=== PATIENT | male | born 1985 | race Caucasian/White ===

== ENCOUNTER → 2024-10-11 11:00 | Outpatient (REF) | payer SELFPAY ==
[2024-10-11 16:23] LABS: Color, Urine Yellow (Yellow); Glucose, Dipstick Normal (Normal); Ketone-Dipstick Negative (Negative); Leukocyte Esterase-Dipstick Negative /ul (Negative); Nitrite-Dipstick Negative (Negative); Occult Blood-Urine Negative /ul (Negative); Protein-Dipstick 15 mg/dl (Negative); Urine Bilirubin Dipstick Negative (Negative); Urine Clarity Cloudy (Clear); Urine Urobilinogen 1 mg/dl (Normal); Urine pH 6.5 (5.0 - 8.0)
--- OUTSIDE RECORDS SUMMARY | 2024-10-11 22:03 | XMS RPT_ITS | CCD ---
Author Organization [facility] Care Team Providers Care [place] Setter Name Role Phone OTONIEL GUAN III Attending Unavail able OTONIEL GUAN III Attending Unavailable ROSARIO ROB, DR OTONIEL Wilkins Primary Care Physician Otoniel Beck MD Unavailable Stanton HERNÁNDEZ, Sherry Amaro Unavailable [phone] Elvin SALES OPERATIONS ASSOCIATE, Janki Aileen Unavailable Unavailable Lupe Dao MD Unavailable Buddy SALES OPERATIONS ASSOCIATE, Jocelyn Unavailable Unavailable Rashaad HERNÁNDEZ, Kelli Amaro Unavailable [phone] Tash SALES OPERATIONS ASSOCIATE, Yesenia Sánchez Unavailable Unavailab angélica Warner SALES OPERATIONS ASSOCIATE, Barby Unavailable Unavailabl e Unavailable Unavailable BRITTNEY ROB, DR MADRIGAL Attending Unavailable ROSARIO ROB, DR OTONIEL Wilkins Primary Care Ekaterina KOLB MD, SUSANA Admitting Unavailable SARAH ROB, DR PARRA Consulting Unavailable DANGELO ROB, ROXIE Consulting Unavailable RICHY ROB, DR NAZARIO Consulting Unavailable MARIA INES ROB, CÉSAR Consulting Unavailable MAX ROB, CANDACE Consulting Unavailfranky CORONEL MD, VIRGINIE Consulting Unavailable MAX VALLEJO Primary Care Unavailable MAX VALLEJO Admitting Unavailable MAX VALLEJO Attending Unavailable OTONIEL BECK Referring Unavailable OTONIEL BECK Consulting Unavailable REINIER SENIOR MD Attending Unavailable REINIER SENIOR MD Primary Care Unavailable REINIER SENIOR MD Admitting Unavailable PROVIDER, UNKNOWN Consulting Unavailable PROVIDER, UNKNOWN Consulting Unavailable PROVIDER, UNKNOWN Consulting Unavailable Medications Current Medications Medication Drug Class(es) Dates Sig (Normalized) Sig (Original) dexamethasone 4 mg oral tablet (1 source) Corticosteroid Start: 07-20-2023 End: 07-25-2023 dexAMETHasone 4 mg oral tablet Dose : 4 mg = 1 tab(s), Oral, QID, X 5 day(s), # 20 tab(s), 0 Refill(s), 07/25/23 1:28:00 PM EDT, Pharmacy: [facility], 182.6, cm, 07/17/23 23:19:00 EST, Height, kg, 07/17/23 23:19:00 EST, Dosing Weight Start Date: 07/20/23 Stop Date: 07/25/23 Status: Ordered levETIRAcetam 500 mg oral tablet (1 source) Start: 07-20-2023 Keppra 500 mg oral tablet Dose : 500 mg = 1 tab(s), Oral, BID, # 60 tab(s), 0 Refill(s), Pharmacy: [facility], 182.6, cm, 07/17/23 23:19:00 EST, Height, kg, 07/17/23 23:19:00 EST, Dosing Weight Start Date: 07/20/23 Status: Ordered pantoprazole 40 mg delayed release oral tablet (1 source) Proton Pump Inhibitor Start: 07-20-2023 Protonix 40 mg oral enteric coated tablet Dose : 40 mg = 1 tab(s), Oral, qDayAC, # 30 tab(s), 0 Refill(s), Pharmacy: [facility], 182.6, cm, 07/17/23 23:19:00 EST, Height, kg, 07/17/23 23:19:00 EST, Dosing Weight Start Date: 07/20/23 Status: Ordered Completed/Discontinued Medications Medication Drug Class(es) Dates Sig (Normalized) Sig (Original) azithromycin 500 mg oral tablet (8 sources) Macrolide Antimicrobial Start: 08-04-2017 End: 08-07-2017 take 1 tablet by mouth once daily Azithromycin 500 MG Oral Tablet ; 1 (one) Tablet daily for 3 days Quantity: 3 {Tablet} Refills: 0 Ordered: 04-Aug-2017 MD Lupe Dao Start: 04-Aug-2017 End: 07-Aug-2017 Status: Inactive nortriptyline 25 mg oral capsule (8 sources) Tricyclic Antidepressant Start: 07-14-2013 End: 10-28-2020 take 1 capsule by mouth once daily at bedtime Nortriptyline HCl 25 MG Oral Capsule ; 1 (one) Capsule Capsule daily at bedtime for 0 days Quantity: 30 {Capsule} Refills: 2 Ordered: 28-Oct-2020 [place] Goodwin Jocelyn Start: 14-Jul-2013 End: 28-Oct-2020 Status: Inactive Problems Active Problems Problem Classification Problem Date Documented Da te Episodic/Chronic Abdominal pain (20 sources) Abdominal pain; Translations: [Unspecified abdominal pain] 10-28-2020 Episodic Cancer of brain and nervous system (15 sources) Malignant neoplasm of cerebrum; Translations: [Malignant neoplasm of cerebrum, except lobes and ventricles] Chronic Cancer of bronchus; lung (2 sources) Malignant neoplasm of unspecified part of right bronchus or lung; Translations: [Primary malignant neoplasm of right lung] Chronic Epilepsy; convulsions (1 source) Seizure; Translations: [Unspecified convulsions] Episodic Fluid and electrolyte disorders (1 source) Acidosis; Translations: [Acidosis, unspecified] Episodic Malaise and fatigue (16 sources) Lack of energy; Translations: [Other fatigue] 10-28-2020 Episodic Other gastrointestinal disorders (20 sources) Constipation; Translations: [Constipation, unspecified] 10-28-2020 Episodic Other lower respiratory disease (1 source) Abnormal findings on diagnostic imaging of lung; Translations: [Other nonspecific abnormal finding of lung field] Onset: 07-20-2023 Episodic Other lower respiratory disease (1 source) Multiple nodules of lung 07-20-2023 Episodic Other nervous system disorders (1 source) Disorder of brain; Translations: [Encephalopathy, unspecified] Chronic Other nervous system disorders (16 sources) Paresthesia; Translations: [Paresthesia of skin] 10-28-2020 Episodic Other non-epithelial cancer of skin (1 source) History of malignant neoplasm of skin; Translations: [Personal history of other malignant neoplasm of skin] Episodic Other upper respiratory infections (20 sources) Acute pharyngitis; Translations: [Acute pharyngitis, unspecified] 08-04-2017 Episodic Secondary malignancies (2 sources) Secondary malignant neoplasm of brain; Translations: [Secondary malignant neoplasm of brain] Onset: 07-20-2023 Chronic Secondary malignancies (14 sources) Secondary malignant neoplastic disease; Translations: [Secondary malignant neoplasm of unspecified site] 07-22-2023 Chronic Past or Other Problems Problem Classification Problem Date Documented Date Episodic/Chronic Headache; including migraine (8 sources) Headache; including migraine 08-04-2017 Unclassified (1 source) QUAD STRENGTHENING Onset: 01-25-2023 Unclassified (8 sources) Cold Symptoms - Symptoms include sore throat, general malaise (denies body aches, reports mild fatigue) and headache, but do not include sneezing, nasal congestion, runny nose, ear pain, scratchy throat, hoarseness, dry cough, productive cough, wheezing, fever or chills. The onset was gradual 4 day(s) ago. The symptoms occur constantly. The patient describes this as moderate in severity and worsening. Current treatment includes cough suppressants (that numb his throat), acetaminophen (last dose was at 3 am, this has been helping his headaches) and garling peroxide and salt water. Risk factors do not include smoking. The patient has not been exposed to an individual with a cough, an individual with an upper respiratory infection, an individual with similar symptoms, an individual with strep or secondhand smoke. Medical history includes tonsillectomy, but patient denies history of seasonal allergies, recurrent sinusitis, recurrent strep pharyngitis, asthma or recurrent ear infections. Note for Upper respiratory infection: pt said he gets sore throats often but within 2 days it typically goes awayPatient has not been vaccinated for COVID. 10-28-2020 Unclassified (8 sources) Headache - The onset of the headache has been acute and has been occurring in an intermittent pattern for 1 month. The course has been recurrent. The headache is characterized as a pressure sensation. The headache is experienced any time of the day (no diurnal variation). The headache is described as being located in the frontal area and the temporal area. There has been no associated ear pain, fever, head trauma or sore throat. Note for Headache: patient last week had a head cold and states that he does still have a little congestion but not real bad. States it can feel like spasms sometimes. He was in yesterday for bowel problems/constipatio n which was seen month prior and has been using mirilax and then came in yesterday was sent for xray which stated that he had no blockage was told to do a enima a nd stated that he did and all in return was liquid. 06-23-2013 Unclassified (8 sources) Abdominal pain and Constipation - Pt was here 06/07/13 for abdominal pain and constipation. Pain is across the lower abdomen. He was instructed to increase fiber in his diet and take Miralax daily. Pt has done both of these things and still having the pain and constipation. Has been having daily BMs since starting on the miralax but say they are only a small amount and are the size of pencils - long and thin. Last good BM was on Wednesday and it was diarrhea. He had had an ex-lax tea to drink that day. Has had the small BMs since then. Some nausea but no vomiting. Continues to feel bloated intermittently. Feels like there is just a big chunk of stool that he can't get out. He feels like he has to have a BM but only air will come out. Does have relief from his symptoms after BM but just doesn't feel back to normal. 06-19-2013 Unclassified (8 sources) Constipation - The onset of the constipation has been gradual and has been occurring in a persistent pattern for 4 weeks. The course has been constant. The frequency of bowel movements has been 3 per week. The symptoms have been associated with abdominal pain (bloating) and nausea (will feel hungry but when he starts to eat feels sick to his stomach; has vomited once). Note for Constipation: Some improvement in bloating sensation after has a BM. Some straining with BMs. No blood with BMs.Pt also has pain in his head at times and shooting pain in his left leg. Says that doesn't have a pain in the leg, it is more of a tingling sensation down the entire leg. Only happens when he sits or lies down; discomfort is constant when in these positions. No history of injury. No low back pain. This has been for about a month. For weeks now has had spasms all over body and loss of energy. No headaches or really pain in his head as mentioned earlier. Has this feeling every couple of days. Had cold symptoms a few days ago but those have resolved. No ill contacts.Pt is here to establish care - previously a patient at [facility]. 06-08-2013 Results Test Name Value Interpretation Reference Range [facility] [place] [address] Patient: OTTONIEL DASILVA Phone#: : 1985 Age: 37 Gender: M Pt. Type: ER Account: [id number] Location: 052 Ordering: DR. REINIER SENIOR Exam Date: 10/01/2023/2:30 Family Phys: OTONIEL BECK Charge Code: [id number] Physician: [place] Order #: [id number] Dose#: PROCEDURE: X-RAY CHEST 2 VIEWS COMPARISON: [facility], XR, CHEST 1 VIEW, 07/17/2023, 11:32. INDICATIONS: Shortness of breath. FINDINGS: LUNGS: Opacification in the left lower thorax is present consistent with effusion. Opacification left lower lobe is present consistent with infiltrate and/or loss of volume.. VASCULATURE: Normal. Unremarkable pulmonary vasculature. CARDIAC: Normal. No cardiac silhouette abnormality or cardiomegaly. MEDIASTINUM: Normal. No visible mass or adenopathy. PLEURA: Left-sided pleural effusion is present and larger than on prior exam. Underlying infiltrate cannot be excluded. BONES: Normal. No fracture or visible bony lesion. OTHER: Negative. CONCLUSION: 1. Left lower lobe atelectasis and/or infiltrate. 2. Left pleural effusion. Dictated by: Jodi Son MD on 10/01/2023 at 9:12 Approved by: Jodi Son MD on 10/01/2023 at 9:24 Normal [facility] CT BRAIN W/O CONTRASTon 09-08 CT BRAIN W/O CONTRAST [place] [address] Patient: OTTONIEL DASILVA Phone#: : 1985 Age: 37 Gender: M Pt. Type: ER Account: [id number] Location: 052 Ordering: DR. REINIER SENIOR Exam Date: 10/01/2023/1:55 Family Phys: OTONIEL BECK Charge Code: [id number] Physician: [place] Order #: [id number] Dose#: [id number] PROCEDURE: CT BRAIN WITHOUT CONTRAST COMPARISON: [facility], CT, BRAIN W/O CON, 07/17/2023, 11:18. INDICATIONS: Headache. TECHNIQUE: CT images were obtained without contrast material. All CT scans at this facility use dose modulation, iterative reconstruction, and/or weight based dosing when appropriate to reduce radiation dose to as low as reasonably achievable. IV CONTRAST: No IV contrast used,0ml TOTAL DOSE: 52.30 CTDIvol(mGy) FINDINGS: CEREBRUM: Foci of abnormal attenuation with surrounding vasogenic edema are present. The 2 most prominent in the right and left parietal lobes. These foci have increased in size since the previous examination. There has been no other significant interval change. There is effacement of the right lateral ventricle. There is approximately 5 millimeter midline shift to the left. CEREBELLUM: No edema, hemorrhage, mass, acute infarction, or inappropriate atrophy. BRAINSTEM: No edema, hemorrhage, mass, acute infarction, or inappropriate atrophy. CSF SPACES: Ventricles, cisterns, and sulci are appropriate for age. No hydrocephalus, subarachnoid hemorrhage, or mass. SKULL: No mass or other significant visible lesion. SINUSES: Limited views demonstrate no significant mucosal thickening or fluid. ORBITS: Limited views are unremarkable. OTHER: Negative. CONCLUSION: 1. Foci of increased attenuation with surrounding vasogenic edema. The largest is in the right parietal lobe. Findings are consistent with metastatic disease. The most prominent lesions are slightly increased in size since previous exam. Continued Report - Page 2 of 2 Patient: OTTONIEL DASILVA Phone#: : 1985 Age: 37 Gender: M Pt. Type: ER Account: [id number] Location: 2 Ordering: DR. REINIER SENIOR Exam Date: 10/01/2023/1:55 Family Phys: OTONIEL BECK Charge Code: [id number] Physician: [place] Order #: [id number] Dose#: [id number] Dictated by: Jodi Son MD on 10/01/2023 at 11:10 Approved by: Jodi Son MD on 10/01/2023 at 11:35 Normal [facility] Supplemental Reporton 2023 Supplemental Report . Pathology Reports Accession: Collected Date/Time: Received Date/Time: Pathologist: [id number] 07/20/2023 10:30 EDT 07/20/2023 13:38 MD HOLLY AYON Supplemental Report SUPPLEMENTAL: [facility] [address] [place] [id number] PD-L1 Results XT and XR test cancel due to QNS(quality not sufficient) Results scanned into chart. Electronically Signed by Pathology Report verified by [facility] HOLLY LOPEZ MD Sign out Date: 08/10/2023 07:28 Performing Lab: [address] Pathology Dept Final Surgical Pathology Report DIAGNOSIS: LEFT LUNG, CORE BIOPSY: - MODERATELY DIFFERENTIATED ADENOCARCINOMA Comment: Stains are positive in the tumor cells for cytokeratin 7, TTF-1, Napsin A and mock 31 and show focal positive staining for cytokeratin 5/6. The tumor cells are negative for cytokeratin 20, NKX3.1, CDX2 and calretinin. The staining pattern is compatible with a lung primary adenocarcinoma. Focal signet ring morphology and some mucinous differentiation is identified. PD-L1 and molecular studies are ordered. CLINICAL INFORMATION: MEDIAL PLEURAL MASS; H/O SKIN CANCER; H/O BRAIN CANCER METS Procedure: LUNG BX SPECIMEN: A LEFT LUNG MASS- 12 CORES; MEDIAL PLURAL MASS GROSS DESCRIPTION: All parts labelled with patient name and [id number] Received in formalin labelled undesignated on the container Are multiple cylindrical soft tissue cores and core fragments ranging from less than 0.1 to 0.7 cm. TS-1 Lupe Leavitt, Pathologists' Paper Machine Operator (ASCP) Dictated by LUPE LEAVITT MICROSCOPIC DESCRIPTION: The microscopic examination is performed, except in the case of Gross Only. ADDITIONAL DIAGNOSTIC CODES: [id number] Pathology Reports Accession: Collected Date/Time: Received Date/Time: Pathologist: [id number] 07/20/2023 10:30 EDT 07/20/2023 13:38 MD HOLLY AYON Electronically Signed by Pathology Report verified by [facility] HOLLY LOPEZ MD Sign out Date: 07/21/2023 14:13 Performing Lab: [address] Pathology Dept Disclaimer If ancillary studies were utilized, the following Laboratory Developed Test (LDT) disclaimer will apply: Under CLIA requirements, [facility] is qualified to perform high complexity testing. For all ancillary stains, positive and negative controls stain appropriately. Performance characteristics of immunohistochemical and chromogenic in-situ hybridization tests have been determined by [facility]. These tests are used for clinical purposes, They should not be regarded as investigational or for research. Normal [facility] ([place]) LEVETIRACETAMon 08-02-2023 levETIRAcetam [Mass/Vol] 9.7 ug/mL [facility] Comment on above: Order Comment: FASTI NG: UNKNOWN Result Comment: Refe rence Range: 12.0-46.0 Toxic level is not well established. Interpretation should include a clinical evaluation. For additional information, please refer to http://education.[employer]/faq/LXS764 (This link is being provided for informational/educational purposes only.) This test was developed and its analytical performance characteristics have been determined by [facility]. It has not been cleared or approved by the FDA. This assay has been validated pursuant to the CLIA regulations and is used for clinical purposes. Performed By: #### 1 [id number] #### [facility] [address] [place] [address] [facility] Administrator: Vincent Shell M.D. EMERGENCY REPORTon 4 EMERGENCY REPORT [facility] EMERGENCY ROOM REPORT NAME ACCOUNT SEX AGE ADMIT DISCHARGE PT MED. RECORD# NUMBER DATE DATE TYPE OTTONIEL DASILVA [id number] M 37 07/17/23 3 [address]3502 ROOM: ER DATE OF : 1985 DICTATING PHYSICIAN: aMx Vallejo CHIEF COMPLAINT: Seizure. HISTORY OF PRESENT ILLNESS: The patient was brought in by squad. He was at a marital conference when he suddenly had a seizure and fell to the floor. He apparently bumped his head on the floor. The seizure continued for approximately 10-15 minutes. The squad was called and on their arrival, the patient was very combative and agitated. He eventually seemed to become more cooperative. He was transported here and on arrival he is quiet and relatively cooperative, though he does not really remember how he got here. He did later remember that he drove to the conference and remembers sitting there, but that is the last thing he remembers. He states that he has not had a history of seizure. Several days ago he had a small cancer removed from his neck, which he states was a basal cell carcinoma. He has a bandage to the neck area. No recent illness. No weight loss. He has been eating and drinking well. No cough or congestion. He is not complaining dizziness. Although, he states that recently if he moves his head quickly he feels a little transiently dizzy. He complains of a headache presently. PAST MEDICAL HISTORY: Negative for any known medical problems. PAST SURGICAL HISTORY: No previous other surgery except for the neck cancer removal. MEDICATIONS: He takes no medications. ALLERGIES: No known drug allergies. SOCIAL HISTORY: He works in [employer]. He lives at home. He does not smoke or drink alcohol. He used to smoke, but not for at least 10 years. REVIEW OF SYSTEMS: As mentioned above, other systems negative. PHYSICAL EXAMINATION: GENERAL: This is a 37-year-old male who is alert and appropriate. He was initially confused, but cooperative. Later he was much more appropriate and responsive. SKIN: [place] and dry. HEENT: No apparent injury to the head or scalp. Pupils are equal, round and reactive to light. EOMI. Tympanic membranes, mouth and throat are all within normal limits. NECK: Supple without adenopathy. LUNGS: Clear. There are perhaps some slight diminished breath Page 1 of 2 OTTONIEL DASILVA Emergency Room Report OTTONIEL DASILVA : 1985 sounds at the left base. There are no crackles or wheezes. CARDIAC: Regular rhythm without ectopy, murmurs, gallops or rubs. Initially, he was tachycardic, but that gradually returned to regular sinus rhythm. ABDOMEN: Soft and nontender. EXTREMITIES: Moves extremities appropriately without any focal weakness. No clubbing, cyanosis or edema. VITAL SIGNS: Temperature 97.6, pulse 120, respirations 19, blood pressure 113/68. O2 saturation 93-94%. DIAGNOSTIC DATA: EKG showed sinus tachycardia without any acute ST or T changes. Head CT returned showing 2 masses in the brain, a 2.6 right parietal lesion, and a 1.4 left posterior parietal lesion with some surrounding edema. No shift of the midline structures. Chest x-ray per my reading shows what appears to be left lower lobe infiltrate or mass. Chest CT and it returned, as read by Radiology, showing a large opacity associated with a fissure through the left lung with multiple subpleural nodules and multiple nodules in the left lower lobe, diffuse pleural thickening. EMERGENCY DEPARTMENT COURSE AND TREATMENT: IV was in place. The patient was given 1 gram Keppra IV and 10 mg Decadron IV. 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 Lesions in the left lung consistent with malignancy. PLAN/DISPOSITION: I discussed management with he and his , who is here, and I recommended transfer to another facility for further evaluation and management. Awaiting final disposition. Dictated By: Max Vallejo MD 07/17/23 13:54 JOB #: [id number] Transcribed By: antonio 07/17/23 14:20 Electronically signed by: AAKASH Vallejo M.D. 07/29/23 07:21 Page 2 of 2 OTTONIEL DASILVA Emergency Room Report Normal [facility] Final Surgical Pathology Rep [facility] 07-21-2023 Final Surgical Pathology Report . Pathology Reports Accession: Collected Date/Time: Received Date/Time: Pathologist: [id number] 07/20/2023 10:30 EDT 07/20/2023 13:38 EDT MD HOLLY LOPEZ Final Surgical Pathology Report DIAGNOSIS: LEFT LUNG, CORE BIOPSY: - MODERATELY DIFFERENTIATED ADENOCARCINOMA Comment: Stains are positive in the tumor cells for cytokeratin 7, TTF-1, Napsin A and mock 31 and show focal positive staining for cytokeratin 5/6. The tumor cells are negative for cytokeratin 20, NKX3.1, CDX2 and calretinin. The staining pattern is compatible with a lung primary adenocarcinoma. Focal signet ring morphology and some mucinous differentiation is identified. PD-L1 and molecular studies are ordered. CLINICAL INFORMATION: MEDIAL PLEURAL MASS; H/O SKIN CANCER; H/O BRAIN CANCER METS Procedure: LUNG BX SPECIMEN: A LEFT LUNG MASS- 12 CORES; MEDIAL PLURAL MASS GROSS DESCRIPTION: All parts labelled with patient name and [id number] Received in formalin labelled undesignated on the container Are multiple cylindrical soft tissue cores and core fragments ranging from less than 0.1 to 0.7 cm. TS-1 Lupe Leavitt, Pathologists' Paper Machine Operator (ASCP) Dictated by LUPE LEAVITT MICROSCOPIC DESCRIPTION: The microscopic examination is performed, except in the case of Gross Only. ADDITIONAL DIAGNOSTIC CODES: [id number] Electronically Signed by Pathology Report verified by [facility] HOLLY LOPEZ MD Sign out Date: 07/21/2023 14:13 Performing Lab: [facility], [facility] [address] [place] [address] Pathology Dept Disclaimer If ancillary studies were utilized, the following Laboratory Developed Test (LDT) disclaimer will apply: Under CLIA requirements, [facility] is qualified to perform high complexity testing. For all ancillary stains, positive and negative controls stain appropriately. Performance characteristics of immunohistochemical and chromogenic in-situ hybridization tests have been determined by [facility]. These tests are used for clinical purposes, They should not be regarded as investigational or for research. Normal [facility] ([place]) IR BIOPSY LUNGon 07-21-2023 IR BIOPSY LUNG ORIGINAL HISTORY: ORDERING SYSTEM PROVIDED HISTORY: Reason for Exam: 12 sedation time-44 min. 12 cores in formalin. 20cc lido. medeasy 18x16 and corca 18x15. gelfoam used. TECHNIQUE: This exam was performed according to our departmental dose-optimization program which includes automated exposure control, adjustment of the mA and/or kVp according to patient size and/or use of iterative reconstruction technique where applicable. PROCEDURE: 1. CT guided pleural mass core biopsy 2. BIOPSY TARGET LOCATION: Medial left upper pleural nodularity ACCESS SITE: Left posterior chest TOUCHPREP: No EDUCATIONAL RECRUITER: Dr. Smith ASSISTANT MANAGER PT: None MATERIALS: 18 g core biopsy ANESTHESIA: Moderate conscious sedation administered. Patient was monitored throughout the procedure by nurse. INTRASERVICE TIME (min): 44 FINDINGS: PRE: Moderate nodularity of the medial superior left hemithorax redemonstrated which was targeted. Basilar consolidation was also noted at the lung bases with some nodular foci. Pleural lesion was targeted given low risk of pneumothorax. POST: No pneumothorax.Some gas foci Gel-Foam injection noted. The procedure, risks, limitations, and alternatives were discussed. All questions answered. Written informed consent obtained. Percutaneous site was sterilely prepped and draped. Time out performed. After administering local anesthesia, guide needle was advanced to the lesion under CT guidance. Core samples obtained from the lesion and submitted to pathology and/or microbiology. The lesion was extremely firm and that the 1st 18 gauge biopsy device was unable to obtain adequate samples. Different 18 gauge biopsy device was then used. Number of cores documented in brief post procedure note on [facility]. Some bleeding from the guide needle was noted which was treated with Gelfoam slurry with immediate hemostasis. All needles removed. Sterile dressing placed. COMPLICATION: None EBL: Minimal CONDITION: Stable IMPRESSION: 1. Successful CT guided core pleural biopsy. Interpreted by: Fidel Smith MD Preliminary Report By: Fidel Smith MD Electronically signed By Fidel Smith MD Dictated Date: 07/20/2023 11:29:00 PM Prelim Date: 07/20/2023 11:31:24 PM Sign Date: 07/20/2023 11:31:24 PM Ordering Provider: LILIA Lance [facility] ([place]) .Auto Diffon 07-20-2023 Basophil, Absolute 0.0 10 3/mcL Normal 0.0-0.3 [facility] ([place]) Comment on above: Performed By: #### G FR, CBC, ADIFF, BMP, ANEU ####[address] [address] Basophils/100 WBC (Bld) 0.1 % Normal 0.0-2.5 A [facility] ([place]) Comment on above: Performed By: #### G FR, CBC, ADIFF, BMP, ANEU ####[address] [address] Eosinophil, Absolute 0.0 10 3/mcL Normal 0.0-0.7 [facility] ([place] Comment on above: Performed By: #### G FR, CBC, ADIFF, BMP, ANEU ####[address] [address] Eosinophils/100 WBC (Bld) 0.0 % Normal 0.0-6.0 [facility] ([place]) Comment on above: Performed By: #### G FR, CBC, ADIFF, BMP, ANEU ####[address] [address] Lymphocyte, Absolute 0.9 10 3/mcL Normal 0.9-4.3 [facility] ([place] Comment on above: Performed By: #### G FR, CBC, ADIFF, BMP, ANEU ####[address] [address] Lymphocytes/100 WBC (Bld) 6.6 % Low 20.0-40.0 [facility] ([place] Comment on above: Performed By: #### G FR, CBC, ADIFF, BMP, ANEU ####[address] [address] Monocyte, Absolute 0.7 10 3/mcL Normal 0.1-1.4 [facility] ([place] Comment on above: Performed By: #### G FR, CBC, ADIFF, BMP, ANEU ####[address] [address] Monocytes/100 WBC (Bld) 5.2 % Normal 2.0-13.0 [facility] ([place] Comment on above: Performed By: #### G FR, CBC, ADIFF, BMP, ANEU ####[address] [address] Neutrophils/100 WBC (Bld) 88.1 % High 50.0-75.0 [facility] ([place] Comment on above: Performed By: #### G FR, CBC, ADIFF, BMP, ANEU ####[address] [address] .GFRon 07-20-2023 GFR Non- >60 Normal [facility] ([place]) Comment on above: Result Comment: GFR Population mean for , Non- Americans Ages 20-29 = 116 mL/min/1.73 sq.m. Ages 30-39 = 107 mL/min/1.73 sq.m. Ages 40-49 = 99 mL/min/1.73 sq.m. Ages 50-59 = 93 mL/min/1.73 sq.m. Ages 60-69 = 85 mL/min/1.73 sq.m. Ages 70+ = 75 mL/min/1.73 sq.m. Chronic Kidney Disease: Less than 60 mL/min/1.73 square meters End Stage Renal Disease: Less than 15 mL/min/1.73 square meters Performed By: #### G FR, CBC, ADIFF, BMP, ANEU ####[address] [address] GFR >60 Normal [facility] ([place]) Comment on above: Result Comment: GFR Population mean for , Non- Americans Ages 20-29 = 116 mL/min/1.73 sq.m. Ages 30-39 = 107 mL/min/1.73 sq.m. Ages 40-49 = 99 mL/min/1.73 sq.m. Ages 50-59 = 93 mL/min/1.73 sq.m. Ages 60-69 = 85 mL/min/1.73 sq.m. Ages 70+ = 75 mL/min/1.73 sq.m. Chronic Kidney Disease: Less than 60 mL/min/1.73 square meters End Stage Renal Disease: Less than 15 mL/min/1.73 square meters Performed By: #### G FR, CBC, ADIFF, BMP, ANEU ####[address] [address] .NEUABSon 07-20-2023 Neutrophil, Absolute 12.4 10 3/mcL High 2.3-8.1 A [facility] ([place]) Comment on above: Performed By: #### G FR, CBC, ADIFF, BMP, ANEU ####[place] [address] BMPon 07-20-2023 BUN/Creatinine Ratio 22.7 ratio High 10.0-22.0 [facility] ([place]) Comment on above: Performed By: #### G FR, CBC, ADIFF, BMP, ANEU ####[address] [address] Calcium [Mass/Vol] 9.4 mg/dL Normal 8.7-10.4 [facility] ([place]) Comment on above: Performed By: #### G FR, CBC, ADIFF, BMP, ANEU ####[place] [address] Chloride [Moles/Vol] 108 mmol/L Normal 98-110 [facility] ([place]) Comment on above: Performed By: #### G FR, CBC, ADIFF, BMP, ANEU ####[place] [address] CO2 [Moles/Vol] 26 mmol/L Normal 22-32 [facility] ([place]) Comment on above: Performed By: #### G FR, CBC, ADIFF, BMP, ANEU ####[place] [address] Creatinine [Mass/Vol] 0.75 mg/dL Normal 0.60-1.40 [facility] ([place]) Comment on above: Performed By: #### G FR, CBC, ADIFF, BMP, ANEU ####[place] [address] Electrolyte Balance 6.0 mEq/L Normal 4.0-15.0 [facility] ([place]) Comment on above: Performed By: #### G FR, CBC, ADIFF, BMP, ANEU ####[place] [address] Glucose [Mass/Vol] 125 mg/dL High 70-110 [facility] ([place] Comment on above: Performed By: #### G FR, CBC, ADIFF, BMP, ANEU ####[place] [address] Potassium [Moles/Vol] 4.4 mmol/L Normal 3.5-5.0 [facility] ([place]) Comment on above: Result Comment: Spec imen slightly hemolyzed. Performed By: #### G FR, CBC, ADIFF, BMP, ANEU ####[place] [address] Sodium [Moles/Vol] 140 mmol/L Normal 136-145 [facility] ([place]) Comment on above: Performed By: #### G FR, CBC, ADIFF, BMP, ANEU ####[place] [address] Urea nitrogen [Mass/Vol] 17.0 mg/dL Normal 8.0-22.0 [facility] ([place]) Comment on above: Performed By: #### G FR, CBC, ADIFF, BMP, ANEU ####[address] [address] CBCon 07-20-2023 Erythrocyte distribution width (RBC) [Ratio] 13.3 % Normal 11.5-15.5 [facility] ([place]) Comment on above: Performed By: #### G FR, CBC, ADIFF, BMP, ANEU ####[place] [address] Hematocrit (Bld) [Volume fraction] 44.4 % Normal 40.0-52.0 [facility] ([place]) Comment on above: Performed By: #### G FR, CBC, ADIFF, BMP, ANEU ####[place] [address] Hgb 15.4 G/dL Normal 13.0-17.5 [facility] ([place]) Comment on above: Performed By: #### G FR, CBC, ADIFF, BMP, ANEU ####[place] [address] MCH (RBC) [Entitic mass] 30.0 pg Normal 27.0-33.0 [facility] ([place]) Comment on above: Performed By: #### G FR, CBC, ADIFF, BMP, ANEU ####[place] [address] MCHC 34.7 G/dL Normal 32.0-36.0 [facility] ([place] Comment on above: Performed By: #### G FR, CBC, ADIFF, BMP, ANEU ####[place] [address] MCV (RBC) [Entitic vol] 86.5 fL Normal 81.0-100.0 [facility] ([place]) Comment on above: Performed By: #### G FR, CBC, ADIFF, BMP, ANEU ####[place] [address] Platelet 288 10 3/mcL Normal 150-450 [facility] ([place]) Comment on above: Performed By: #### G FR, CBC, ADIFF, BMP, ANEU ####[place] [address] Platelet mean volume (Bld) [Entitic vol] 7.5 fL Normal 6.4-10.5 [facility] ([place]) Comment on above: Performed By: #### G FR, CBC, ADIFF, BMP, ANEU ####[facility] [place] [address] RBC 5.14 10 6/mcL Normal 4.50-6.00 [facility] ([place]) Comment on above: Performed By: #### G FR, CBC, ADIFF, BMP, ANEU ####[facility] [place] [address] WBC 14.0 10 3/mcL High 4.5-10.8 [facility] ([place]) Comment on above: Performed By: #### G FR, CBC, ADIFF, BMP, ANEU ####[address] [address] LABORATORYOrdered By: SYSTEM SYSTEM on 07-20-2023 Basophils (Bld) [#/Vol] 0.0 103/mcL Normal 0.0 - 0.3 10^3/mcL Workflow SS Basophils/100 WBC (Bld) 0.1 % Normal 0.0 - 2.5 % Workflow SS Calcium [Mass/Vol] 9.4 mg/dL Normal 8.7 - 10. 4 mg/dL ADM SS Chloride [Moles/Vol] 108 mmol/L Normal 98 - 11 0 mEq/L ADM SS CO2 [Moles/Vol] 26 mmol/L Normal 22 - 32 mEq/L ADM SS Creatinine [Mass/Vol] 0.75 mg/dL Normal 0.60 - 1.40 mg/dL ADM SS Electrolyte Balance 6.0 mEq/L Normal 4.0 - 15 .0 mEq/L ADM SS Eosinophils (Bld) [#/Vol] 0.0 103/mcL Normal 0.0 - 0.7 10^3/mcL Workflow SS Eosinophils/100 WBC (Bld) 0.0 % Normal 0.0 - 6.0 % AH Workflow SS Erythrocyte distribution width (RBC) [Ratio] 13.3 % Normal 11.5 - 15.5 % AH Workflow SS GFR/1.73 sq M.predicted among blacks MDRD (S/P/Bld) [Vol rate/Area] ml/min/1.73sqm Invalid Interpretation Code Chemistry S Comment on above: Interpretive Data: GFR Population mean for , Non- Americans Ages 20-29 = 116 mL/min/1.73 sq.m. Ages 30-39 = 107 mL/min/1.73 sq.m. Ages 40-49 = 99 mL/min/1.73 sq.m. Ages 50-59 = 93 mL/min/1.73 sq.m. Ages 60-69 = 85 mL/min/1.73 sq.m. Ages 70+ = 75 mL/min/1.73 sq.m. Chronic Kidney Disease: Less than 60 mL/min/1.73 square meters End Stage Renal Disease: Less than 15 mL/min/1.73 square meters GFR/1.73 sq M.predicted among non-blacks MDRD (S/P/Bld) [Vol rate/Area] ml/min/1.73sqm Invalid Interpretation Code Chemistry S Comment on above: Interpretive Data: GFR Population mean for , Non- Americans Ages 20-29 = 116 mL/min/1.73 sq.m. Ages 30-39 = 107 mL/min/1.73 sq.m. Ages 40-49 = 99 mL/min/1.73 sq.m. Ages 50-59 = 93 mL/min/1.73 sq.m. Ages 60-69 = 85 mL/min/1.73 sq.m. Ages 70+ = 75 mL/min/1.73 sq.m. Chronic Kidney Disease: Less than 60 mL/min/1.73 square meters End Stage Renal Disease: Less than 15 mL/min/1.73 square meters Glucose [Mass/Vol] 125 mg/dL High 70 - 110 mg/dL ADM SS Hematocrit (Bld) [Volume fraction] 44.4 % Normal 40.0 - 52.0 % Workflow SS Hemoglobin (Bld) [Mass/Vol] 15.4 G/dL Normal 13.0 - 17.5 G/dL Workflow SS Lymphocytes (Bld) [#/Vol] 0.9 103/mcL Normal 0.9 - 4.3 10^3/mcL Workflow SS Lymphocytes/100 WBC (Bld) 6.6 % Low 20.0 - 40.0 % AH Workflow SS MCH (RBC) [Entitic mass] 30.0 pg Normal 27. 0 - 33.0 pg AH Workflow SS MCHC 34.7 G/dL Normal 32.0 - 36.0 G/dL Workflow SS MCV (RBC) [Entitic vol] 86.5 fL Normal 81.0 - 100.0 fL Workflow SS Monocytes (Bld) [#/Vol] 0.7 103/mcL Normal 0.1 - 1.4 10^3/mcL AH Workflow SS Monocytes/100 WBC (Bld) 5.2 % Normal 2.0 - 13.0 % AH Workflow SS Neutrophils (Bld) [#/Vol] 12.4 103/mcL High 2.3 - 8.1 10^3/mcL AH Workflow SS Neutrophils/100 WBC (Bld) 88.1 % High 50.0 - 75.0 % Workflow SS Platelet mean volume (Bld) [Entitic vol] 7.5 fL Normal 6.4 - 10.5 fL Workflow SS Platelets (Bld) [#/Vol] 288 103/mcL Normal 150 - 450 10^3/mcL AH Workflow SS Potassium [Moles/Vol] 4.4 mmol/L Normal 3.5 - 5.0 mEq/L ADM SS Comment on above: Result Comment: Spec imen slightly hemolyzed. RBC (Bld) [#/Vol] 5.14 106/mcL Normal 4.50 - 6.0 0 10^6/mcL Workflow SS Sodium [Moles/Vol] 140 mmol/L Normal 136 - 145 mEq/L ADM SS Urea nitrogen [Mass/Vol] 17.0 mg/dL Normal 8.0 - 22.0 mg/dL ADM SS Urea nitrogen/Creatinine [Mass ratio] 22.7 ratio High 10.0 - 22.0 ratio ADM SS WBC (Bld) [#/Vol] 14.0 103/mcL High 4.5 - 10.8 10^3/mcL Workflow SS XR CHEST 1 VIEWon 07-20-2023 XR CHEST 1 VIEW ORIGINAL EXAMINATION: ONE XRAY VIEW OF THE CHEST 07/20/2023 11:19 am COMPARISON: CT biopsy same date HISTORY: ORDERING SYSTEM PROVIDED HISTORY: Reason for Exam: Left upper pleural biopsy FINDINGS: The cardiomediastinal silhouette is normal. Patchy airspace opacities at the left base. Left apical opacity. The right lung appears clear other than mild right apical opacity which could be due to pleural thickening or scarring. There is no large effusion. No pneumothorax. Contrast is seen within the splenic flexure. IMPRESSION: 1. No visible postprocedural pneumothorax. 2. Areas of left-sided airspace opacity. Interpreted by: César Arevalo MD Preliminary Report By: César Arevalo MD Electronically signed By César Arevalo MD Dictated Date: 07/20/2023 11:24:41 AM Prelim Date: 07/20/2023 11:26:39 AM Sign Date: 07/20/2023 11:26:39 AM Ordering Provider: FIDEL Lance [facility] ([place]) .Auto Diffon 07-19-2023 Basophil, Absolute 0.0 10 3/mcL Normal 0.0-0.3 [facility] ([place]) Comment on above: Performed By: #### B MP, CBC, ADIFF, ANEU, GFR #### [address] [address] Basophils/100 WBC (Bld) 0.0 % Normal 0.0-2.5 [facility] ([place]) Comment on above: Performed By: #### B MP, CBC, ADIFF, ANEU, GFR #### [address] [address] Eosinophil, Absolute 0.0 10 3/mcL Normal 0.0-0.7 [facility] ([place]) Comment on above: Performed By: #### B MP, CBC, ADIFF, ANEU, GFR #### [address] [address] Eosinophils/100 WBC (Bld) 0.0 % Normal 0.0-6.0 [facility] ([place]) Comment on above: Performed By: #### B MP, CBC, ADIFF, ANEU, GFR #### [address] [address] Lymphocyte, Absolute 0.7 10 3/mcL Low 0.9-4.3 [facility] ([place] Comment on above: Performed By: #### B MP, CBC, ADIFF, ANEU, GFR #### [address] [address] Lymphocytes/100 WBC (Bld) 6.0 % Low 20.0-40.0 [facility] ([place] Comment on above: Performed By: #### B MP, CBC, ADIFF, ANEU, GFR #### [address] [address] Monocyte, Absolute 0.6 10 3/mcL Normal 0.1-1.4 [facility] ([place] Comment on above: Performed By: #### B MP, CBC, ADIFF, ANEU, GFR #### [address] [address] Monocytes/100 WBC (Bld) 5.1 % Normal 2.0-13.0 [facility] ([place] Comment on above: Performed By: #### B MP, CBC, ADIFF, ANEU, GFR #### [address] [address] Neutrophils/100 WBC (Bld) 88.9 % High 50.0-75.0 [facility] ([place] Comment on above: Performed By: #### B MP, CBC, ADIFF, ANEU, GFR #### [address] [address] .GFRon 07-19-2023 GFR Non- >60 Normal [facility] ([place] Comment on above: Result Comment: GFR Population mean for , Non- Americans Ages 20-29 = 116 mL/min/1.73 sq.m. Ages 30-39 = 107 mL/min/1.73 sq.m. Ages 40-49 = 99 mL/min/1.73 sq.m. Ages 50-59 = 93 mL/min/1.73 sq.m. Ages 60-69 = 85 mL/min/1.73 sq.m. Ages 70+ = 75 mL/min/1.73 sq.m. Chronic Kidney Disease: Less than 60 mL/min/1.73 square meters End Stage Renal Disease: Less than 15 mL/min/1.73 square meters Performed By: #### B MP, CBC, ADIFF, ANEU, GFR #### [address] [address] GFR >60 Normal [facility] ([place]) Comment on above: Result Comment: GFR Population mean for , Non- Americans Ages 20-29 = 116 mL/min/1.73 sq.m. Ages 30-39 = 107 mL/min/1.73 sq.m. Ages 40-49 = 99 mL/min/1.73 sq.m. Ages 50-59 = 93 mL/min/1.73 sq.m. Ages 60-69 = 85 mL/min/1.73 sq.m. Ages 70+ = 75 mL/min/1.73 sq.m. Chronic Kidney Disease: Less than 60 mL/min/1.73 square meters End Stage Renal Disease: Less than 15 mL/min/1.73 square meters Performed By: #### B MP, CBC, ADIFF, ANEU, GFR #### [address] [address] .NEUABSon 07-19-2023 Neutrophil, Absolute 10.0 10 3/mcL High 2.3-8.1 [facility] ([place]) Comment on above: Performed By: #### B MP, CBC, ADIFF, ANEU, GFR #### [address] [address] BMPon 07-19-2023 BUN/Creatinine Ratio 16.5 ratio Normal 10.0-22.0 [facility] ([place] Comment on above: Performed By: #### B MP, CBC, ADIFF, ANEU, GFR #### [address] [address] Calcium [Mass/Vol] 9.8 mg/dL Normal 8.7-10.4 [facility] ([place] Comment on above: Performed By: #### B MP, CBC, ADIFF, ANEU, GFR #### [address] [address] Chloride [Moles/Vol] 109 mmol/L Normal 98-110 [facility] ([place] Comment on above: Performed By: #### B MP, CBC, ADIFF, ANEU, GFR #### [address] [address] CO2 [Moles/Vol] 29 mmol/L Normal 22-32 [facility] ([place]) Comment on above: Performed By: #### B MP, CBC, ADIFF, ANEU, GFR #### [address] [address] Creatinine [Mass/Vol] 0.85 mg/dL Normal 0.60-1.40 [facility] ([place] Comment on above: Performed By: #### B MP, CBC, ADIFF, ANEU, GFR #### [place] [id number] Electrolyte Balance 2.0 mEq/L Low 4.0-15.0 [facility] ([place] Comment on above: Performed By: #### B MP, CBC, ADIFF, ANEU, GFR #### [place] [id number] Glucose [Mass/Vol] 124 mg/dL High 70-110 [facility] ([place] Comment on above: Performed By: #### B MP, CBC, ADIFF, ANEU, GFR #### [place] [address] Potassium [Moles/Vol] 4.7 mmol/L Normal 3.5-5.0 [facility] ([place] Comment on above: Performed By: #### B MP, CBC, ADIFF, ANEU, GFR #### [place] [id number] Sodium [Moles/Vol] 140 mmol/L Normal 136-145 [facility] ([place] Comment on above: Performed By: #### B MP, CBC, ADIFF, ANEU, GFR #### [place] [id number] Urea nitrogen [Mass/Vol] 14.0 mg/dL Normal 8.0-22.0 [facility] ([place] Comment on above: Performed By: #### B MP, CBC, ADIFF, ANEU, GFR #### [address] [address] CBCon 07-19-2023 Erythrocyte distribution width (RBC) [Ratio] 13.5 % Normal 11.5-15.5 [facility] ([place]) Comment on above: Performed By: #### B MP, CBC, ADIFF, ANEU, GFR #### [place] [id number] Hematocrit (Bld) [Volume fraction] 45.0 % Normal 40.0-52.0 [facility] ([place]) Comment on above: Performed By: #### B MP, CBC, ADIFF, ANEU, GFR #### [place] [address] Hgb 15.2 G/dL Normal 13.0-17.5 [facility] ([place]) Comment on above: Performed By: #### B MP, CBC, ADIFF, ANEU, GFR #### [place] [address] MCH (RBC) [Entitic mass] 29.4 pg Normal 27.0-33.0 [facility] ([place]) Comment on above: Performed By: #### B MP, CBC, ADIFF, ANEU, GFR #### [place] [address] MCHC 33.7 G/dL Normal 32.0-36.0 [facility] ([place]) Comment on above: Performed By: #### B MP, CBC, ADIFF, ANEU, GFR #### [place] [address] MCV (RBC) [Entitic vol] 87.3 fL Normal 81.0-100.0 [facility] ([place]) Comment on above: Performed By: #### B MP, CBC, ADIFF, ANEU, GFR #### [place] [address] Platelet 285 10 3/mcL Normal 150-450 [facility] ([place]) Comment on above: Performed By: #### B MP, CBC, ADIFF, ANEU, GFR #### [place] [address] Platelet mean volume (Bld) [Entitic vol] 7.4 fL Normal 6.4-10.5 [facility] ([place]) Comment on above: Performed By: #### B MP, CBC, ADIFF, ANEU, GFR #### [place] [address] RBC 5.15 10 6/mcL Normal 4.50-6.00 [facility] ([place]) Comment on above: Performed By: #### B MP, CBC, ADIFF, ANEU, GFR #### [address] [place], [place] [address] WBC 11.3 10 3/mcL High 4.5-10.8 [facility] ([place]) Comment on above: Performed By: #### B MP, CBC, ADIFF, ANEU, GFR #### [facility] [address] [place] [address] [address] ABDOMEN/PELVIS W/CONTRAST on 07-19-2023 CT ABDOMEN/PELVIS W/CONTRAST ORIGINAL EXAMINATION: CT OF THE ABDOMEN AND PELVIS WITH CONTRAST 07/18/2023 5:50 pm TECHNIQUE: CT of the abdomen and pelvis was performed with the administration of intravenous contrast. Multiplanar reformatted images are provided for review. Automated exposure control, iterative reconstruction, and/or weight based adjustment of the mA/kV was utilized to reduce the radiation dose to as low as reasonably achievable. COMPARISON: None. 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 Malignancy workup Oral contrast was administered. FINDINGS: Lower Chest: Lower thorax demonstrates subsegmental multifocal consolidation of the left lung base. However, underlying pulmonary nodules cannot be excluded. There are 2 discrete 3 mm pulmonary densities at the anterior right middle lobe. Organs: The liver demonstrates no biliary duct dilatation or gross mass. Gallbladder is decompressed without gross calcified gallstone. The pancreas demonstrates no evidence of mass, ductal dilatation, or inflammatory process. Spleen is normal in size. Adrenal glands are normal in size. The kidneys enhance symmetrically without evidence of hydronephrosis. Ureters are normal in caliber bilaterally. GI/Bowel: Stomach and duodenal sweep demonstrate no acute abnormality. small bowel and colon are normal in caliber. Appendix is normal in caliber without gross wall thickening or inflammatory change. There are mildly enlarged mesenteric nodes, nonspecific, which may be reactive. Osseous structures are intact. At the posterior L2 vertebral body, there is a nonspecific Pelvis: Urinary bladder is decompressed and suboptimally evaluated. No acute abnormality of the prostate. Peritoneum/Retroperit oneum: Aorta is normal in caliber without acute abnormality. Bones/Soft Tissues: Osseous structures are intact. At the posterior L2 vertebral body, there is a nonspecific 8 mm sclerotic lesion. There is a 7 mm sclerotic lesion of anterior L3 vertebral body. There is 7 mm and 6 mm sclerotic lesion of the right femoral head. Follow-up PET-CT study or nuclear medicine bone scan may be useful for further evaluation for potential osseous metastases, if clinically indicated. IMPRESSION: 1. There is no evidence of abdominal or pelvic mass. There are mildly enlarged mesenteric nodes, nonspecific, which may be reactive. 2. At the posterior L2 vertebral body, there is a nonspecific 8 mm sclerotic lesion. There is a 7 mm sclerotic lesion of anterior L3 vertebral body. There is 7 mm and 6 mm sclerotic lesion of the right femoral head. Follow-up PET-CT study or nuclear medicine bone scan may be useful for further evaluation for potential osseous metastases, if clinically indicated. Interpreted by: Eric Connor Preliminary Report By: Eric Connor Electronically signed By Eric Connor Dictated Date: 07/18/2023 11:17:22 PM Prelim Date: 07/18/2023 11:36:56 PM Sign Date: 07/18/2023 11:36:56 PM Ordering Provider: CARLOS DASILVA [facility] ([place]) LABORATORYOrdered By: SYSTEM SYSTEM on 07-19-2023 Basophils (Bld) [#/Vol] 0.0 103/mcL Normal 0.0 - 0.3 10^3/mcL AH Workflow SS Basophils/100 WBC (Bld) 0.0 % Normal 0.0 - 2.5 % AH Workflow SS Calcium [Mass/Vol] 9.8 mg/dL Normal 8.7 - 10. 4 mg/dL ADM SS Chloride [Moles/Vol] 109 mmol/L Normal 98 - 11 0 mEq/L ADM SS CO2 [Moles/Vol] 29 mmol/L Normal 22 - 32 mEq/L ADM SS Creatinine [Mass/Vol] 0.85 mg/dL Normal 0.60 - 1.40 mg/dL ADM SS Electrolyte Balance 2.0 mEq/L Low 4.0 - 15 .0 mEq/L ADM SS Eosinophils (Bld) [#/Vol] 0.0 103/mcL Normal 0.0 - 0.7 10^3/mcL AH Workflow SS Eosinophils/100 WBC (Bld) 0.0 % Normal 0.0 - 6.0 % AH Workflow SS Erythrocyte distribution width (RBC) [Ratio] 13.5 % Normal 11.5 - 15.5 % Workflow SS GFR/1.73 sq M.predicted among blacks MDRD (S/P/Bld) [Vol rate/Area] ml/min/1.73sqm Invalid Interpretation Code [employer] Chemistry S Comment on above: Interpretive Data: GFR Population mean for , Non- Americans Ages 20-29 = 116 mL/min/1.73 sq.m. Ages 30-39 = 107 mL/min/1.73 sq.m. Ages 40-49 = 99 mL/min/1.73 sq.m. Ages 50-59 = 93 mL/min/1.73 sq.m. Ages 60-69 = 85 mL/min/1.73 sq.m. Ages 70+ = 75 mL/min/1.73 sq.m. Chronic Kidney Disease: Less than 60 mL/min/1.73 square meters End Stage Renal Disease: Less than 15 mL/min/1.73 square meters GFR/1.73 sq M.predicted among non-blacks MDRD (S/P/Bld) [Vol rate/Area] ml/min/1.73sqm Invalid Interpretation Code [employer] Chemistry S Comment on above: Interpretive Data: GFR Population mean for , Non- Americans Ages 20-29 = 116 mL/min/1.73 sq.m. Ages 30-39 = 107 mL/min/1.73 sq.m. Ages 40-49 = 99 mL/min/1.73 sq.m. Ages 50-59 = 93 mL/min/1.73 sq.m. Ages 60-69 = 85 mL/min/1.73 sq.m. Ages 70+ = 75 mL/min/1.73 sq.m. Chronic Kidney Disease: Less than 60 mL/min/1.73 square meters End Stage Renal Disease: Less than 15 mL/min/1.73 square meters Glucose [Mass/Vol] 124 mg/dL High 70 - 110 mg/dL ADM SS Hematocrit (Bld) [Volume fraction] 45.0 % Normal 40.0 - 52.0 % Workflow SS Hemoglobin (Bld) [Mass/Vol] 15.2 G/dL Normal 13.0 - 17.5 G/dL Workflow SS Lymphocytes (Bld) [#/Vol] 0.7 103/mcL Low 0.9 - 4.3 10^3/mcL AH Workflow SS Lymphocytes/100 WBC (Bld) 6.0 % Low 20.0 - 40.0 % AH Workflow SS MCH (RBC) [Entitic mass] 29.4 pg Normal 27. 0 - 33.0 pg AH Workflow SS MCHC 33.7 G/dL Normal 32.0 - 36.0 G/dL AH Workflow SS MCV (RBC) [Entitic vol] 87.3 fL Normal 81.0 - 100.0 fL AH Workflow SS Monocytes (Bld) [#/Vol] 0.6 103/mcL Normal 0.1 - 1.4 10^3/mcL AH Workflow SS Monocytes/100 WBC (Bld) 5.1 % Normal 2.0 - 13.0 % AH Workflow SS Neutrophils (Bld) [#/Vol] 10.0 103/mcL High 2.3 - 8.1 10^3/mcL AH Workflow SS Neutrophils/100 WBC (Bld) 88.9 % High 50.0 - 75.0 % AH Workflow SS Platelet mean volume (Bld) [Entitic vol] 7.4 fL Normal 6.4 - 10.5 fL AH Workflow SS Platelets (Bld) [#/Vol] 285 103/mcL Normal 150 - 450 10^3/mcL AH Workflow SS Potassium [Moles/Vol] 4.7 mmol/L Normal 3.5 - 5.0 mEq/L AH ADM SS RBC (Bld) [#/Vol] 5.15 106/mcL Normal 4.50 - 6.0 0 10^6/mcL AH Workflow SS Sodium [Moles/Vol] 140 mmol/L Normal 136 - 145 mEq/L ADM SS Urea nitrogen [Mass/Vol] 14.0 mg/dL Normal 8.0 - 22.0 mg/dL AH ADM SS Urea nitrogen/Creatinine [Mass ratio] 16.5 ratio Normal 10.0 - 22.0 ratio AH ADM SS WBC (Bld) [#/Vol] 11.3 103/mcL High 4.5 - 10.8 10^3/mcL AH Workflow SS .Auto Diffon 07-18-2023 Basophil, Absolute 0.0 10 3/mcL Normal 0.0-0.3 [facility] ([place]) Comment on above: Performed By: #### P RO, CMP, CK, ANEU, MG, CBC, GFR, LAC, ADIFF ####[address] [address] Basophils/100 WBC (Bld) 0.1 % Normal 0.0-2.5 A [facility] ([place]) Comment on above: Performed By: #### P RO, CMP, CK, ANEU, MG, CBC, GFR, LAC, ADIFF ####[address] [address] Eosinophil, Absolute 0.0 10 3/mcL Normal 0.0-0.7 [facility] ([place]) Comment on above: Performed By: #### P RO, CMP, CK, ANEU, MG, CBC, GFR, LAC, ADIFF ####[address] [address] Eosinophils/100 WBC (Bld) 0.0 % Normal 0.0-6.0 [facility] ([place]) Comment on above: Performed By: #### P RO, CMP, CK, ANEU, MG, CBC, GFR, LAC, ADIFF ####[address] [address] Lymphocyte, Absolute 0.9 10 3/mcL Normal 0.9-4.3 [facility] ([place]) Comment on above: Performed By: #### P RO, CMP, CK, ANEU, MG, CBC, GFR, LAC, ADIFF ####[address] [address] Lymphocytes/100 WBC (Bld) 7.0 % Low 20.0-40.0 [facility] ([place] Comment on above: Performed By: #### P RO, CMP, CK, ANEU, MG, CBC, GFR, LAC, ADIFF ####[address] [address] Monocyte, Absolute 1.0 10 3/mcL Normal 0.1-1.4 [facility] ([place]) Comment on above: Performed By: #### P RO, CMP, CK, ANEU, MG, CBC, GFR, LAC, ADIFF ####[address] [address] Monocytes/100 WBC (Bld) 7.9 % Normal 2.0-13.0 A [facility] ([place]) Comment on above: Performed By: #### P RO, CMP, CK, ANEU, MG, CBC, GFR, LAC, ADIFF ####[address] [address] Neutrophils/100 WBC (Bld) 85.0 % High 50.0-75.0 [facility] ([place] Comment on above: Performed By: #### P RO, CMP, CK, ANEU, MG, CBC, GFR, LAC, ADIFF ####[address] [address] .GFRon 07-18-2023 GFR Non- >60 Normal [facility] ([place]) Comment on above: Result Comment: GFR Population mean for , Non- Americans Ages 20-29 = 116 mL/min/1.73 sq.m. Ages 30-39 = 107 mL/min/1.73 sq.m. Ages 40-49 = 99 mL/min/1.73 sq.m. Ages 50-59 = 93 mL/min/1.73 sq.m. Ages 60-69 = 85 mL/min/1.73 sq.m. Ages 70+ = 75 mL/min/1.73 sq.m. Chronic Kidney Disease: Less than 60 mL/min/1.73 square meters End Stage Renal Disease: Less than 15 mL/min/1.73 square meters Performed By: #### P RO, CMP, CK, ANEU, MG, CBC, GFR, LAC, ADIFF ####[address] [address] GFR >60 Normal [facility] ([place]) Comment on above: Result Comment: GFR Population mean for , Non- Americans Ages 20-29 = 116 mL/min/1.73 sq.m. Ages 30-39 = 107 mL/min/1.73 sq.m. Ages 40-49 = 99 mL/min/1.73 sq.m. Ages 50-59 = 93 mL/min/1.73 sq.m. Ages 60-69 = 85 mL/min/1.73 sq.m. Ages 70+ = 75 mL/min/1.73 sq.m. Chronic Kidney Disease: Less than 60 mL/min/1.73 square meters End Stage Renal Disease: Less than 15 mL/min/1.73 square meters Performed By: #### P RO, CMP, CK, ANEU, MG, CBC, GFR, LAC, ADIFF ####[place] [address] .NEUABSon 07-18-2023 Neutrophil, Absolute 10.7 10 3/mcL High 2.3-8.1 A [facility] ([place]) Comment on above: Performed By: #### P RO, CMP, CK, ANEU, MG, CBC, GFR, LAC, ADIFF ####[place] [address] AFPSon 07-18-2023 AFP, Tumor Marker 6.3 ng/mL Normal 0.0-8.5 [facility] ([place]) Comment on above: Result Comment: Ryann ent results determined by assays using different manufacturers for methods may not be comparable. Performed By: #### P SA, LD, AFPS, HCGT ####[place] [address] CBCon 07-18-2023 Erythrocyte distribution width (RBC) [Ratio] 13.2 % Normal 11.5-15.5 [facility] ([place]) Comment on above: Performed By: #### P RO, CMP, CK, ANEU, MG, CBC, GFR, LAC, ADIFF ####[place] [address] Hematocrit (Bld) [Volume fraction] 43.1 % Normal 40.0-52.0 [facility] ([place]) Comment on above: Performed By: #### P RO, CMP, CK, ANEU, MG, CBC, GFR, LAC, ADIFF ####[place] [address] Hgb 14.6 G/dL Normal 13.0-17.5 [facility] ([place]) Comment on above: Performed By: #### P RO, CMP, CK, ANEU, MG, CBC, GFR, LAC, ADIFF ####[place] [address] MCH (RBC) [Entitic mass] 29.1 pg Normal 27.0-33.0 [facility] ([place] Comment on above: Performed By: #### P RO, CMP, CK, ANEU, MG, CBC, GFR, LAC, ADIFF ####[place] [address] MCHC 33.8 G/dL Normal 32.0-36.0 [facility] ([place] Comment on above: Performed By: #### P RO, CMP, CK, ANEU, MG, CBC, GFR, LAC, ADIFF ####[place] [address] MCV (RBC) [Entitic vol] 85.9 fL Normal 81.0-100.0 A [facility] ([place]) Comment on above: Performed By: #### P RO, CMP, CK, ANEU, MG, CBC, GFR, LAC, ADIFF ####[place] [address] Platelet 285 10 3/mcL Normal 150-450 [facility] ([place]) Comment on above: Performed By: #### P RO, CMP, CK, ANEU, MG, CBC, GFR, LAC, ADIFF ####[place] [address] Platelet mean volume (Bld) [Entitic vol] 7.2 fL Normal 6.4-10.5 [facility] ([place]) Comment on above: Performed By: #### P RO, CMP, CK, ANEU, MG, CBC, GFR, LAC, ADIFF ####[place] [address] RBC 5.01 10 6/mcL Normal 4.50-6.00 [facility] ([place]) Comment on above: Performed By: #### P RO, CMP, CK, ANEU, MG, CBC, GFR, LAC, ADIFF ####[place] [address] WBC 12.6 10 3/mcL High 4.5-10.8 [facility] ([place]) Comment on above: Performed By: #### P RO, CMP, CK, ANEU, MG, CBC, GFR, LAC, ADIFF ####[address] [address] CKon 07-18-2023 CK [Catalytic activity/Vol] 370 U/L High 7-185 [facility] ([place]) Comment on above: Performed By: #### P RO, CMP, CK, ANEU, MG, CBC, GFR, LAC, ADIFF ####[place] [id number] CMPon 07-18-2023 Albumin Level 3.5 G/dL Normal 3.2-4.8 [facility] ([place] Comment on above: Performed By: #### P RO, CMP, CK, ANEU, MG, CBC, GFR, LAC, ADIFF ####[place] [address] Albumin/Globulin [Mass ratio] 1.2 {ratio} Normal 0.9-1.6 [facility] ([place]) Comment on above: Performed By: #### P RO, CMP, CK, ANEU, MG, CBC, GFR, LAC, ADIFF ####[place] [address] ALP [Catalytic activity/Vol] 59 U/L Normal 38-126 [facility] ([place]) Comment on above: Performed By: #### P RO, CMP, CK, ANEU, MG, CBC, GFR, LAC, ADIFF ####[place] [address] ALT [Catalytic activity/Vol] 16 U/L Normal 12-55 [facility] ([place]) Comment on above: Performed By: #### P RO, CMP, CK, ANEU, MG, CBC, GFR, LAC, ADIFF ####[address] [address] AST [Catalytic activity/Vol] 8 U/L Normal 8-34 [facility] ([place]) Comment on above: Performed By: #### P RO, CMP, CK, ANEU, MG, CBC, GFR, LAC, ADIFF ####[place] [address] Bili Total 0.60 mg/dL Normal 0.20-1.20 [facility] ([place]) Comment on above: Result Comment: Use of this assay is not recommended for patients undergoing treatment with eltrombopag due to the potential for falsely elevated results. Performed By: #### P RO, CMP, CK, ANEU, MG, CBC, GFR, LAC, ADIFF ####[place] [address] BUN/Creatinine Ratio 19.5 ratio Normal 10.0-22.0 [facility] ([place]) Comment on above: Performed By: #### P RO, CMP, CK, ANEU, MG, CBC, GFR, LAC, ADIFF ####[place] [address] Calcium [Mass/Vol] 9.2 mg/dL Normal 8.7-10.4 [facility] ([place]) Comment on above: Performed By: #### P RO, CMP, CK, ANEU, MG, CBC, GFR, LAC, ADIFF ####[place] [address] Chloride [Moles/Vol] 109 mmol/L Normal 98-110 [facility] ([place]) Comment on above: Performed By: #### P RO, CMP, CK, ANEU, MG, CBC, GFR, LAC, ADIFF ####[place] [address] CO2 [Moles/Vol] 26 mmol/L Normal 22-32 [facility] ([place]) Comment on above: Performed By: #### P RO, CMP, CK, ANEU, MG, CBC, GFR, LAC, ADIFF ####[place] [address] Creatinine [Mass/Vol] 0.77 mg/dL Normal 0.60-1.40 [facility] ([place]) Comment on above: Performed By: #### P RO, CMP, CK, ANEU, MG, CBC, GFR, LAC, ADIFF ####[place] [address] Electrolyte Balance 7.0 mEq/L Normal 4.0-15.0 [facility] ([place]) Comment on above: Performed By: #### P RO, CMP, CK, ANEU, MG, CBC, GFR, LAC, ADIFF ####[address] [address] Globulin 3.0 G/dL Normal 1.5-3.8 [facility] ([place]) Comment on above: Performed By: #### P RO, CMP, CK, ANEU, MG, CBC, GFR, LAC, ADIFF ####[address] [address] Glucose [Mass/Vol] 125 mg/dL High 70-110 [facility] ([place]) Comment on above: Performed By: #### P RO, CMP, CK, ANEU, MG, CBC, GFR, LAC, ADIFF ####[place] [id number] Potassium [Moles/Vol] 4.1 mmol/L Normal 3.5-5.0 [facility] ([place]) Comment on above: Performed By: #### P RO, CMP, CK, ANEU, MG, CBC, GFR, LAC, ADIFF ####[place] [id number] Sodium [Moles/Vol] 142 mmol/L Normal 136-145 [facility] ([place]) Comment on above: Performed By: #### P RO, CMP, CK, ANEU, MG, CBC, GFR, LAC, ADIFF ####[place] [address] Total Protein 6.5 G/dL Normal 5.7-8.2 [facility] ([place]) Comment on above: Result Comment: No te - New Reference Range in effect 19 Performed By: #### P RO, CMP, CK, ANEU, MG, CBC, GFR, LAC, ADIFF ####[place] [address] Urea nitrogen [Mass/Vol] 15.0 mg/dL Normal 8.0-22.0 [facility] ([place]) Comment on above: Performed By: #### P RO, CMP, CK, ANEU, MG, CBC, GFR, LAC, ADIFF ####[place] [id number] HCGTon 07-18-2023 hCG, Tumor Marker <2.6 Normal 0.0-5.0 [facility] ([place]) Comment on above: Result Comment: Ryann ent results determined by assays using different manufacturers for methods may not be comparable. Performed By: #### P SA, LD, AFPS, HCGT ####[place] [id number] [place] [address] LABORATORYOrdered By: SYSTEM SYSTEM on 07-18-2023 AFP [Mass/Vol] 6.3 ng/mL Normal 0.0 - 8.5 ng/mL ADM SS Comment on above: Interpretive Data: P atient results determined by assays using different manufacturers for methods may not be comparable. HCG.beta subunit Qn mIU/mL Normal 0.0 - 5. 0 mIU/mL ADM SS Comment on above: Interpretive Data: P atient results determined by assays using different manufacturers for methods may not be comparable. LDH Lactate to pyruvate reaction [Catalytic activity/Vol] 190 1 Normal 120 - 246 U/L ADM SS Prostate specific Ag [Mass/Vol] 0.49 ng/mL Normal 0.02 - 4.00 ng/mL ADM SS Comment on above: Interpretive Data: P atient results determined by assays using different manufacturers for methods may not be comparable. Albumin BCP dye [Mass/Vol] 3.5 G/dL Normal 3.2 - 4.8 G/dL ADM SS Albumin/Globulin [Mass ratio] 1.2 {ratio} Normal 0.9 - 1.6 ratio ADM SS ALP [Catalytic activity/Vol] 59 U/L Normal 38 - 126 U/L ADM SS ALT No additional P-5'-P [Catalytic activity/Vol] 16 U/L Normal 12 - 55 U/L ADM SS AST [Catalytic activity/Vol] 8 U/L Normal 8 - 34 U/L ADM SS Basophils (Bld) [#/Vol] 0.0 103/mcL Normal 0.0 - 0.3 10^3/mcL Workflow SS Basophils/100 WBC (Bld) 0.1 % Normal 0.0 - 2.5 % Workflow SS Bilirubin [Mass/Vol] 0.60 mg/dL Normal 0.20 - 1.20 mg/dL ADM SS Comment on above: Interpretive Data: U se of this assay is not recommended for patients undergoing treatment with eltrombopag due to the potential for falsely elevated results. Calcium [Mass/Vol] 9.2 mg/dL Normal 8.7 - 10. 4 mg/dL ADM SS Chloride [Moles/Vol] 109 mmol/L Normal 98 - 11 0 mEq/L ADM SS CK [Catalytic activity/Vol] 370 U/L High 7 - 185 U/L ADM SS CO2 [Moles/Vol] 26 mmol/L Normal 22 - 32 mEq/L ADM SS Creatinine [Mass/Vol] 0.77 mg/dL Normal 0.60 - 1.40 mg/dL ADM SS Electrolyte Balance 7.0 mEq/L Normal 4.0 - 15 .0 mEq/L ADM SS Eosinophils (Bld) [#/Vol] 0.0 103/mcL Normal 0.0 - 0.7 10^3/mcL Workflow SS Eosinophils/100 WBC (Bld) 0.0 % Normal 0.0 - 6.0 % Workflow SS Erythrocyte distribution width (RBC) [Ratio] 13.2 % Normal 11.5 - 15.5 % Workflow SS GFR/1.73 sq M.predicted among blacks MDRD (S/P/Bld) [Vol rate/Area] ml/min/1.73sqm Invalid Interpretation Code [employer] S Comment on above: Interpretive Data: GFR Population mean for , Non- Americans Ages 20-29 = 116 mL/min/1.73 sq.m. Ages 30-39 = 107 mL/min/1.73 sq.m. Ages 40-49 = 99 mL/min/1.73 sq.m. Ages 50-59 = 93 mL/min/1.73 sq.m. Ages 60-69 = 85 mL/min/1.73 sq.m. Ages 70+ = 75 mL/min/1.73 sq.m. Chronic Kidney Disease: Less than 60 mL/min/1.73 square meters End Stage Renal Disease: Less than 15 mL/min/1.73 square meters GFR/1.73 sq M.predicted among non-blacks MDRD (S/P/Bld) [Vol rate/Area] ml/min/1.73sqm Invalid Interpretation Code [employer] Chemistry S Comment on above: Interpretive Data: GFR Population mean for , Non- Americans Ages 20-29 = 116 mL/min/1.73 sq.m. Ages 30-39 = 107 mL/min/1.73 sq.m. Ages 40-49 = 99 mL/min/1.73 sq.m. Ages 50-59 = 93 mL/min/1.73 sq.m. Ages 60-69 = 85 mL/min/1.73 sq.m. Ages 70+ = 75 mL/min/1.73 sq.m. Chronic Kidney Disease: Less than 60 mL/min/1.73 square meters End Stage Renal Disease: Less than 15 mL/min/1.73 square meters Globulin 3.0 G/dL Normal 1.5 - 3.8 G/dL AH ADM SS Glucose [Mass/Vol] 125 mg/dL High 70 - 110 mg/dL AH ADM SS Hematocrit (Bld) [Volume fraction] 43.1 % Normal 40.0 - 52.0 % AH Workflow SS Hemoglobin (Bld) [Mass/Vol] 14.6 G/dL Normal 13.0 - 17.5 G/dL AH Workflow SS Lymphocytes (Bld) [#/Vol] 0.9 103/mcL Normal 0.9 - 4.3 10^3/mcL AH Workflow SS Lymphocytes/100 WBC (Bld) 7.0 % Low 20.0 - 40.0 % AH Workflow SS Magnesium [Mass/Vol] 2.2 mg/dL Normal 1.6 - 2 .4 mg/dL AH ADM SS MCH (RBC) [Entitic mass] 29.1 pg Normal 27. 0 - 33.0 pg AH Workflow SS MCHC 33.8 G/dL Normal 32.0 - 36.0 G/dL AH Workflow SS MCV (RBC) [Entitic vol] 85.9 fL Normal 81.0 - 100.0 fL AH Workflow SS Monocytes (Bld) [#/Vol] 1.0 103/mcL Normal 0.1 - 1.4 10^3/mcL AH Workflow SS Monocytes/100 WBC (Bld) 7.9 % Normal 2.0 - 13.0 % AH Workflow SS Neutrophils (Bld) [#/Vol] 10.7 103/mcL High 2.3 - 8.1 10^3/mcL AH Workflow SS Neutrophils/100 WBC (Bld) 85.0 % High 50.0 - 75.0 % AH Workflow SS Platelet mean volume (Bld) [Entitic vol] 7.2 fL Normal 6.4 - 10.5 fL Workflow SS Platelets (Bld) [#/Vol] 285 103/mcL Normal 150 - 450 10^3/mcL AH Workflow SS Potassium [Moles/Vol] 4.1 mmol/L Normal 3.5 - 5.0 mEq/L ADM SS Protein [Mass/Vol] 6.5 G/dL Normal 5.7 - 8.2 G/dL ADM SS Comment on above: Interpretive Data: * *Note - New Reference Range in effect 19 RBC (Bld) [#/Vol] 5.01 106/mcL Normal 4.50 - 6.0 0 10^6/mcL Workflow SS Sodium [Moles/Vol] 142 mmol/L Normal 136 - 145 mEq/L ADM SS Urea nitrogen [Mass/Vol] 15.0 mg/dL Normal 8.0 - 22.0 mg/dL ADM SS Urea nitrogen/Creatinine [Mass ratio] 19.5 ratio Normal 10.0 - 22.0 ratio ADM SS WBC (Bld) [#/Vol] 12.6 103/mcL High 4.5 - 10.8 10^3/mcL Workflow SS LABORATORYOrdered By: Bharati Marvin on 07-18-2023 Lactate [Moles/Vol] 1.1 mmol/L Normal 0.2 - 2. 0 mmol/L Auto Chem SS PT Coag (PPP) [Time] 13.1 s Normal 9.0 - 1 4.2 seconds [facility] SS Comment on above: Interpretive Data: E ffective 11/22/07, Protime results may be affected by some antibiotics (i.e. Ciprofloxacin, Azithromycin, Bactrim) which may potentiate the action of oral anticoagulants, with further increases in Protime/INR. PT International Ratio 1.2 ratio Invalid Interpretation Code [facility] SS Comment on above: Interpretive Data: Tr he [employer] [employer] (CHEST, 1991, 102:312S-25S) recommended therapeutic range for oral anticoagulant therapy is: LOW RISK: Prophylaxis of venous thrombosis INR: 2.0-3.0 Treatment of pulmonary embolism 2.0-3.0 Prevention of systemic embolism 2.0-3.0 HIGH RISK: Mechanical prosthetic valves 2.5-3.5 LACon 07-18-2023 Lactic Acid Lvl 1.1 mmol/L Normal 0.2-2.0 [facility] ([place]) Comment on above: Performed By: #### P RO, CMP, CK, ANEU, MG, CBC, GFR, LAC, ADIFF ####[address] [address] LDHon 07-18-2023 LDH 190 U/L Normal 120-246 [facility] ([place]) Comment on above: Performed By: #### P SA, LD, AFPS, HCGT ####[address] [address] MGon 07-18-2023 Magnesium [Mass/Vol] 2.2 mg/dL Normal 1.6-2.4 [facility] ([place]) Comment on above: Performed By: #### P RO, CMP, CK, ANEU, MG, CBC, GFR, LAC, ADIFF ####[address] [address] MRI BRAIN W/ + W/O CONTRASTo n 07-18-2023 MRI BRAIN W/ + W/O CONTRAST ORIGINAL EXAMINATION: MRI OF THE BRAIN WITHOUT AND WITH CONTRAST 07/18/2023 2:13 pm TECHNIQUE: Multiplanar multisequence MRI of the head/brain was performed without and with the administration of intravenous contrast. COMPARISON: 07/17/2023 CT brain from [facility]. HISTORY: ORDERING SYSTEM PROVIDED HISTORY: Reason for Exam: Brain masses is on CT FINDINGS: INTRACRANIAL STRUCTURES/VENTRICLES : There is no acute infarct. No mass effect or midline shift. No evidence of an acute intracranial hemorrhage. The ventricles and sulci are normal in size and configuration. The sellar/suprasellar regions appear unremarkable. The normal signal voids within the major intracranial vessels appear maintained. There are innumerable enhancing masses scattered throughout the cerebral hemispheres and cerebellar hemispheres, largest measures 2.7 cm in the right posterior temporal lobe, there is mild associated white matter edema with the lesions. The remainder of the lesions measure from punctate to 1.5 cm. ORBITS: The visualized portion of the orbits demonstrate no acute abnormality. SINUSES: The visualized paranasal sinuses and mastoid air cells are well aerated. BONES/SOFT TISSUES: The bone marrow signal intensity appears normal. The soft tissues demonstrate no acute abnormality. IMPRESSION: Innumerable bilateral enhancing masses in the cerebral and cerebellar hemispheres, this represents metastatic disease till proven otherwise. Interpreted by: Ai Gerard MD Preliminary Report By: Ai Gerard MD Electronically signed By Ai Gerard MD Dictated Date: 07/18/2023 2:16:09 PM Prelim Date: 07/18/2023 2:24:46 PM Sign Date: 07/18/2023 2:24:46 PM Ordering Provider: CARLOS Lance [facility] ([place]) PROon 07-18-2023 INR Coag (PPP) [Relative time] 1.2 {INR} Normal [facility] ([place]) Comment on above: Result Comment: The [employer] [employer] (CHEST, 1992, 102:312S-25S) recommended therapeutic range for oral anticoagulant therapy is: LOW RISK: Prophylaxis of venous thrombosis INR: 2.0-3.0 Treatment of pulmonary embolism 2.0-3.0 Prevention of systemic embolism 2.0-3.0 HIGH RISK: Mechanical prosthetic valves 2.5-3.5 Performed By: #### P RO, CMP, CK, ANEU, MG, CBC, GFR, LAC, ADIFF ####[place] [id number] [place] [address] PT Coag (PPP) [Time] 13.1 s Normal 9.0-14.2 [facility] ([place]) Comment on above: Result Comment: Effe ctive 11/22/07, Protime results may be affected by some antibiotics (i.e. Ciprofloxacin, Azithromycin, Bactrim) which may potentiate the action of oral anticoagulants, with further increases in Protime/INR. Performed By: #### P RO, CMP, CK, ANEU, MG, CBC, GFR, LAC, ADIFF ####[place] [id number] [place] [address] PSAon 07-18-2023 Prostate Specific Antigen 0.49 ng/mL Normal 0.02-4.00 [facility] ([place]) Comment on above: Result Comment: Ryann ent results determined by assays using different manufacturers for methods may not be comparable. Performed By: #### P SA, LD, AFPS, HCGT #### [facility] [address] [place] [address] CBC + DIFFon 07-17-2023 Baso # 0.02 x10EE3/UL Normal 0.00 - 0.10 [facility] Comment on above: Performed By: #### 2 [id number] #### [facility],[address] [place] [address] Basophils/100 WBC (Bld) 0.3 % Normal 0.0 - 2.0 [facility] Comment on above: Performed By: #### 2 13103 #### [facility],[address] [place] [address] CBC + DIFF Normal [facility] Comment on above: Result Comment: CBC- COMPLETE BLOOD COUNT Performed By: #### 2 83725 #### [facility],[address] [place] [address] EO # 0.05 x10EE3/UL Normal 0.00 - 0.50 [facility] Comment on above: Performed By: #### 2 81047 #### [facility],[address] [place] [address] Eosinophils/100 WBC (Bld) 0.8 % Normal 0.0 - 7.0 [facility] Comment on above: Performed By: #### 2 21170 #### [facility],[address] [place], [place] [id number] Erythrocyte distribution width (RBC) [Ratio] 13.5 % Normal 12.0 - 15.6 [facility] Comment on above: Performed By: #### 2 29281 #### [facility],[address] [place] [address] Hematocrit (Bld) [Volume fraction] 48.3 % Normal 40.0 - 52.0 [facility] Comment on above: Performed By: #### 2 08721 #### [facility],[address] [place] [address] Hemoglobin (Bld) [Mass/Vol] 16.5 g/dL Normal 13.0 - 17.5 [facility] Comment on above: Performed By: #### 2 39031 #### [facility],[address] [place] [address] Lymph # 1.74 x10EE3/UL Normal 0.80 - 2.80 [facility] Comment on above: Performed By: #### 2 13435 #### [facility],[address] [place] [address] Lymphocytes/100 WBC (Bld) 30.7 % Normal 20.0 - 45.0 [facility] Comment on above: Performed By: #### 2 80308 #### [facility],[address] [place] [address] MANUAL DIFF N/A Normal [facility] Comment on above: Performed By: #### 2 58222 #### [facility],[address] [place] [address] MCH (RBC) [Entitic mass] 29 pg Normal 27 - 33 [facility] Comment on above: Performed By: #### 2 23876 #### [facility],[address] [place] [address] MCHC 34 X10 3 Normal 32 - 36 [facility] Comment on above: Performed By: #### 2 77181 #### [facility],[address] [place] [address] MCV (RBC) [Entitic vol] 85 fL Normal 81 - 98 [facility] Comment on above: Performed By: #### 2 67684 #### [facility],[address] [place] [address] Letcher # 0.61 x10EE3/UL Normal 0.20 - 1.00 [facility] Comment on above: Performed By: #### 2 96423 #### [facility],[address] [place] [address] MONOS % 10.8 % High 0.0 - 10.0 [facility] Comment on above: Performed By: #### 2 47142 #### [facility],[address] [place] [address] Morphology Tarun (Bld) [Interp] N/A Normal [facility] Comment on above: Performed By: #### 2 62564 #### [facility],[address] [place] [address] Neut # 3.26 x10EE3/UL Normal 1.50 - 7.10 [facility] Comment on above: Performed By: #### [id number] #### [facility],[address] [place] [address] [id number] Neutrophils/100 WBC (Bld) 57.5 % Normal 46.0 - 76.0 [facility] Comment on above: Performed By: #### [id number] #### [facility],[address] [place] [id number] PLATELET 295 x10EE3/UL Normal 150 - 450 [facility] Comment on above: Performed By: #### [id number] #### [facility],[address] [place] [id number] Platelet mean volume (Bld) [Entitic vol] 7.1 fL Normal 6.4 - 10.5 [facility] Comment on above: Result Comment: AUTO MATED DIFFERENTIAL Performed By: #### 2 00262 #### [facility],[address] [place] [address] 37360 RBC 5.70 x 10EE6/UL Normal 4.50 - 6.00 [facility] Comment on above: Performed By: #### 2 01982 #### [facility],[address] [place] [address] 87897 WBC 5.7 x 10EE3/UL Normal 4.5 - 10.8 [facility] Comment on above: Performed By: #### 2 94975 #### [facility],[address] [place] [address] 53380 CHEST 1 VIEWon 07-17-2023 CHEST 1 VIEW [place] [address] Patient: OTTONIEL DASILVA Phone#: : 1985 Age: 37 Gender: M Pt. Type: ER Account: [id number] Location: [facility] Ordering: MAX VALLEJO Exam Date: 07/17/2023/11:32 Family Phys: Charge Code: [id number] Physician: [place] Order #: [id number] Dose#: PROCEDURE: X-RAY CHEST 1 VIEW COMPARISON: [facility], XR, CHEST PA/LAT, 05/08/2013, 13:39. INDICATIONS: Seizure. FINDINGS: LUNGS: Patchy left lower lobe infiltrate is present. VASCULATURE: Normal. Unremarkable pulmonary vasculature. CARDIAC: Normal. No cardiac silhouette abnormality or cardiomegaly. MEDIASTINUM: Normal. No visible mass or adenopathy. PLEURA: Blunting of the left costophrenic angle is present consistent with small effusion. BONES: Normal. No fracture or visible bony lesion. OTHER: Negative. CONCLUSION: 1. Left lower lobe infiltrate. 2. Small left pleural effusion. Dictated by: Jodi Son MD on 07/17/2023 at 16:25 Approved by: Jodi Son MD on 07/17/2023 at 16:26 Normal [facility] CMP with eGFRon 07-17-2023 AGE 37 years Normal [facility] Comment on above: Performed By: #### 2 51045 ####[facility],[address] [place] [address] Albumin [Mass/Vol] 3.9 g/dL Normal 3.4 - 5.0 [facility] Comment on above: Performed By: #### 2 68977 ####[facility],[address] [place], [place] [id number] Albumin/Globulin [Mass ratio] 1.1 {ratio} Normal 0.9 - 1.6 [facility] Comment on above: Performed By: #### 2 26055 ####[facility],[address] [place] [address] ALK PHOS 69 U/L Normal 46 - 116 [facility] Comment on above: Performed By: #### 2 04617 ####[facility],[address] [place] [address] ALT [Catalytic activity/Vol] 27 U/L Normal 16 - 63 [facility] Comment on above: Performed By: #### 2 76510 ####[facility],[address] [place] [address] Anion gap [Moles/Vol] 22 mmol/L High 10 - 20 [facility] Comment on above: Performed By: #### 2 17534 ####[facility],[address] [place] [address] AST [Catalytic activity/Vol] 3 U/L Low 15 - 37 [facility] Comment on above: Performed By: #### 2 02966 ####[facility],[address] [place] [address] B/C RATIO 10 ratio Normal 0 - 30 [facility] Comment on above: Performed By: #### 2 37320 ####[facility],[address] [place] [address] Bilirubin [Mass/Vol] 0.5 mg/dL Normal 0.2 - 1.0 [facility] Comment on above: Performed By: #### 2 81563 ####[facility],[address] [place], [place] [id number] Calcium [Mass/Vol] 8.9 mg/dL Normal 8.5 - 10.1 [facility] Comment on above: Performed By: #### 2 61274 ####[facility],[address] [place], [place] [id number] Chloride [Moles/Vol] 103 mmol/L Normal 98 - 107 [facility] Comment on above: Performed By: #### 2 50071 ####[facility],[address] [place], [place] [id number] CMP with eGFR Normal [facility] Comment on above: Result Comment: COMP REHENSIVE METABOLIC PANEL Performed By: #### 2 22205 ####[facility],[address] [place] [address] 35556 CO2 [Moles/Vol] 20.6 mmol/L Low 21.0 - 32.0 [facility] Comment on above: Performed By: #### 2 43312 ####[facility],[address] [place], [place] [id number] Creatinine [Mass/Vol] 1.23 mg/dL Normal 0.70 - 1.[address] [facility] Comment on above: Performed By: #### 2 44673 ####[facility],[address] [place] [address] GFR/1.73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 noted. There is standard osteoarthritic changes including some chondral sclerosis osteophytes and cysts throughout the knee. Procedures Encounter Diagnosis ICD-10-CM 1. Patellofemoral syndrome of both knees M22.2X1 M22.2X2 MEDICAL DECISION MAKING: Low (Chronic Pain AND Bilateral Exam) TIME: Today's visit included preparing to see the patient, [id number] patient care, completing clinical documentation, obtaining and/or reviewing separately obtained history, performing a medically appropriate examination, counseling and educating the patient/family/caregi tommy, ordering medications, tests, or procedures, and care coordination (not separately reported). TREATMENT RISK AND MORBIDITY: Low (Physical Therapy) History reviewed. No pertinent past medical history. PLAN: I spoke with the patient in the office where we discussed the patient's history, symptoms, physical exam findings and radiographic images. I have diagnosed the patient with patellofemoral syndrome of the right and left knee. We spent time discussing potential treatment options including continuing conservative therapies versus surgical intervention. The patient was counseled on the pros and cons of each available option. Based on today's exam, I have recommended physical therapy. His arthritis is minimal in the patellofemoral joints bilaterally and has not yet done therapy. I spoke to the patient about the natural course and progression of knee OA. The patient understands this is a progressive disease. The patient was encouraged to remain active keeping the knees flexible with gentle range of motion exercises. We also discussed and encouraged healthy weight management and maintenance of a healthy BMI. Briefly discussed surgical therapy if conservative treatments fail. Follow-up in our office will be in six weeks with DAVON Foley. Further treatment includes cortisone injection if he sees no improvement with physical therapy. Further testing may be needed including MRI. All questions were answered for the patient and they know to contact o (more content not included)... Normal [facility] Laboratory - Microbiology an d Antimicrobial susceptibilityOrdered By: Yesenia Bianchi on 08-04-2017 S. pyogenes Ag EIA Ql (Throat) Negative Normal [facility]; [place] [facility] Laboratory - Chemistry and C hemistry - challengeon 06-07-2013 TSH Qn 1.47 m[IU]/L Normal 0.40 - 4.50 {mIU/L} [facility]; [place] [employer] [facility] Laboratory - Hematology and Cell countson 06-07-2013 Basophils (Bld) [#/Vol] 20 {Cells}/uL Normal 0 - 200 {Cells}/uL [facility]; [place] [facility]. Basophils/100 WBC (Bld) 0 % Normal [facility]; [place] [facility] Eosinophils (Bld) [#/Vol] 20 {Cells}/uL Normal 15 - 500 {Cells}/uL [facility]; [employer] Eosinophils/100 WBC (Bld) 0 % Normal [facility]; [facility] Erythrocyte distribution width (RBC) [Ratio] 12.6 % Normal 11.0 - 15.0 % [place] [facility]; [facility] Hematocrit (Bld) [Volume fraction] 41.1 % Normal 38.5 - 50.0 % [place] [facility]; [employer] Hemoglobin (Bld) [Mass/Vol] 14.2 g/dL Normal 13.2 - 17.1 g/dL [facility].; [facility], [facility]. Lymphocytes (Bld) [#/Vol] 1690 {Cells}/uL Normal 850 - 3900 {Cells}/uL [facility].; [facility], [facility] Lymphocytes/100 WBC (Bld) 34 % Normal [facility].; [place] [facility], [facility] MCH (RBC) [Entitic mass] 29.6 pg Normal 27. 0 - 33.0 PG [facility].; [facility], [facility]. MCHC (RBC) [Mass/Vol] 34.4 g/dL Normal 32.0 - 36.0 g/dL [facility].; [place] [facility], [facility]. MCV (RBC) [Entitic vol] 86.1 fL Normal 80.0 - 100.0 fL [facility].; [place] [facility], [facility] Monocytes (Bld) [#/Vol] 410 {Cells}/uL Normal 20 0 - 950 {Cells}/uL [facility].; [facility] [employer], [facility]. Monocytes/100 WBC (Bld) 8 % Normal [facility].; [facility], [facility] Neutrophils (Bld) [#/Vol] 2810 {Cells}/uL Normal 1500 - 7800 {Cells}/uL [facility].; [facility], [facility]. Neutrophils/100 WBC (Bld) 57 % Normal [facility].; [place] [employer]AP [employer], [facility] Platelets (Bld) [#/Vol] 221 10*3/uL Normal 140 - 400 10*3/uL [facility].; [facility], [facility]. RBC (Bld) [#/Vol] 4.78 10*6/uL Normal 4.20 - 5.8 0 10*6/uL [facility].; [place] [employer], [facility]. WBC (Bld) [#/Vol] 4.9 10*3/uL Normal 3.8 - 10.8 10*3/uL [place] [facility], [facility].; [place] [employer], [facility] Vital Signs Date Time Vital Sign Value Performing Clinician Facility 07-20-2023 13:00-0400 Diastolic Blood Pressure Non-Invasive 81 mm[Hg] SUSANA KOLB MD [address] [place] [address] 07-20-2023 13:00-0400 Heart rate 87 /min SUSANA KOLB MD [address] [place] [address] 07-20-2023 13:00-0400 Systolic Blood Pressure Non-Invasive 125 mm[Hg] SUSANA KOLB MD [address] [place] [address] 07-20-2023 12:30-0400 Diastolic Blood Pressure Non-Invasive 82 mm[Hg] SUSANA KOLB MD [address] [place] [address] 07-20-2023 12:30-0400 Heart rate 97 /min SUSANA KOLB MD [address] [place] [address] 07-20-2023 12:30-0400 Reason For Taking VItal Signs SUSANA KOLB MD [address] [place] [address] 07-20-2023 12:30-0400 Respiratory rate 20 /min SUSANA KOLB MD [address] [place] [address] 07-20-2023 12:30-0400 Systolic Blood Pressure Non-Invasive 119 mm[Hg] SUSANA KOLB MD [address] [place] [address] 07-20-2023 12:00-0400 Body temperature 97.7 [degF] SUSANA KOLB MD [address] [place] [address] 07-20-2023 12:00-0400 Diastolic Blood Pressure Non-Invasive 80 mm[Hg] SUSANA KOLB MD [address] [place] [address] 07-20-2023 12:00-0400 Heart rate 72 /min SUSANA KOLB MD [address] [place] [address] 07-20-2023 12:00-0400 Respiratory rate 16 /min SUSANA KOLB MD [address] [place] [address] 07-20-2023 12:00-0400 Systolic Blood Pressure Non-Invasive 116 mm[Hg] SUSANA KOLB MD [facility] 07-20-2023 11:30-0400 Body temperature 98.06 [degF] SUSANA KOLB MD [address] [place] [address] 07-20-2023 10:49-0400 Heart rate 71 /min SUSANA KOLB MD [address] [place] [address] 07-20-2023 07:22-0400 Heart rate 70 /min SUSANA KOLB MD [address] [place] [address] 07-20-2023 02:29-0400 Blood Pressure Location SUSANA KOLB MD [address] [place] [address] 07-20-2023 02:29-0400 Blood Pressure Method SUSANA KOLB MD [address] [place] [address] 07-20-2023 02:29-0400 Heart rate 64 /min SUSANA KOLB MD [address] [place] [address] 07-19-2023 22:27-0400 Blood Pressure Location SUSANA KOLB MD [address] [place] [address] 07-19-2023 22:27-0400 Blood Pressure Method SUSANA KOLB MD [address] [place] [address] 07-19-2023 14:34-0400 Blood Pressure Cuff Size SUSANA KOLB MD [address] [place] [address] 07-19-2023 14:34-0400 Blood Pressure Location SUSANA KOLB MD [address] [place] [address] 07-19-2023 14:34-0400 Blood Pressure Method SUSANA KOLB MD [address] [place] [address] 07-19-2023 10:39-0400 Blood Pressure Cuff Size SUSANA KOLB MD [address] [place] [address] 07-17-2023 23:19-0500 Body height 182.6 cm SUSANA KOLB MD [address] [place] [address] 07-17-2023 23:19-0500 Body weight 70.5 kg SUSANA KOLB MD [facility] 07-17-2023 23:19-0500 Body weight 21.14 kg/m2 SUSANA KOLB MD [facility] 07-17-2023 22:58-0500 Blood Pressure Cuff Size SUSANA KOLB MD [facility] 07-17-2023 22:58-0500 Heart rate 77 /min SUSANA KOLB MD [facility] 10-28-2020 09:11-0400 Body height 182.88 cm Jocelyn Goodwin LPN [facility], [facility].; [facility]. 10-28-2020 09:11-0400 Body mass index (BMI) [Ratio] 21.43 kg/m2 Jocelyn Goodwin LPN [facility].; [facility], [facility]. 10-28-2020 09:11-0400 Body surface area Derived from formula 1.93 m2 Jocelyn Goodwin LPN [facility], [facility].; [facility], [facility]. 10-28-2020 09:11-0400 Body temperature 97.5 [degF] Jocelyn Goodwin LPN [facility], [facility].; [facility], [facility]. Comment on above: Method: Tympanic 10-28-2020 [id number] Body weight 71.67 kg Jocelyn Goodwin LPN [facility], [facility].; [facility], [facility]. 10-28-2020 09:11-0400 Diastolic blood pressure 76 mm[Hg] Jocelyn Goodwin LPN [facility].; [facility], [facility]. Comment on above: Patient Position: Sitting; Cuff Location : Left Arm; Cuff Size: Standard 10-28-2020 09:11-0400 Heart rate 70 /min Jocelyn Goodwin LPN [facility], [facility].; [facility], [facility]. Comment on above: Pattern: Regular 10-28-2020 09:11-0400 Systolic blood pressure 114 mm[Hg] Jocelyn Goodwin LPN [facility].; [facility]. Comment on above: Patient Position: Sitting; Cuff Location : Left Arm; Cuff Size: Standard 08-04-2017 08:08-0400 Body height 182.88 cm Yesenia Vulabach [facility] 08-04-2017 08:08-0400 Body mass index (BMI) [Ratio] 21.29 kg/m2 Yesenia Vulabach [facility] 08-04-2017 08:08-0400 Body surface area Derived from formula 1.92 m2 Yesenia Sánchez Tash [facility], [employer]. 08-04-2017 08:08-0400 Body temperature 98.5 [degF] Yesenia Sánchez Tash [facility] [employer]. Comment on above: Method: Tympanic 08-04-2017 08:08-0400 Body weight 71.22 kg Yesenia Vulabach [facility] [employer] 08-04-2017 08:08-0400 Diastolic blood pressure 75 mm[Hg] Yesenia Vulabach [facility] [employer] Comment on above: Patient Position: Sitting; Cuff Location : Left Arm; Cuff Size: Standard 08-04-2017 08:08-0400 Heart rate 74 /min Yesenia Sánchez Tash [facility] [employer] Comment on above: Pattern: Regular 08-04-2017 08:08-0400 Systolic blood pressure 124 mm[Hg] Yesenia Vulabach [facility] [employer] Comment on above: Patient Position: Sitting; Cuff Location : Left Arm; Cuff Size: Standard 06-20-2013 16:44-0500 Body height 182.88 cm Barby Warner LPN [facility] [employer] 06-20-2013 16:44-0500 Body mass index (BMI) [Ratio] 20.21 kg/m2 Barby Warner [facility] [employer], [employer] 06-20-2013 16:44-0500 Body surface area Derived from formula 1.88 m2 Barby Lewnupur BOYLE [facility] [employer] 06-20-2013 16:44-0500 Body temperature 98.2 [degF] Barby Lewnupur [facility] [employer] Comment on above: Method: Tympanic 06-20-2013 16:44-0500 Body weight 67.59 kg Barby Lewnupur BOYLE [facility] [employer], [employer] 06-20-2013 16:44-0500 Diastolic blood pressure 73 mm[Hg] Barby Lewnupur BOYLE [facility], [facility].; [employer], [employer]. Comment on above: Patient Position: Sitting; Cuff Location : Left Arm; Cuff Size: Standard 06-20-2013 16:44-0500 Heart rate 73 /min Barby Lewnupur BOYLE [facility], [facility].; [facility], [employer]. Comment on above: Pattern: Regular 06-20-2013 16:44-0500 Systolic blood pressure 116 mm[Hg] Barby Lewlorinakash [place] [facility], [facility].; [employer], [employer]. Comment on above: Patient Position: Sitting; Cuff Location : Left Arm; Cuff Size: Standard 06-19-2013 15:25-0500 Body weight 68.49 kg Janki Oconnor LPN [facility] [employer] 06-19-2013 15:25-0500 Diastolic blood pressure 75 mm[Hg] Janki Oconnor LPN [place] [facility], [employer].; [facility], [employer]. Comment on above: Patient Position: Sitting; Cuff Location : Left Arm; Cuff Size: Standard 06-19-2013 15:25-0500 Heart rate 68 /min Janki Oconnor LPN [place] [facility], [employer].; [facility], [employer]. Comment on above: Pattern: Regular 06-19-2013 15:25-0500 Systolic blood pressure 120 mm[Hg] Janki Oconnor LPN [place] [facility].; [employer] Comment on above: Patient Position: Sitting; Cuff Location : Left Arm; Cuff Size: Standard 06-07-2013 15:34-0500 Body height 182.88 cm Yesenia Huach [facility] [employer] 06-07-2013 15:34-0500 Body mass index (BMI) [Ratio] 20.75 kg/m2 Yesenia Sánchez Tash [facility].; [employer] 06-07-2013 15:34-0500 Body surface area Derived from formula 1.9 m2 Yesenia Vulabach [facility].; [employer] 06-07-2013 15:34-0500 Body temperature 98.6 [degF] Yesenia Huach [facility].; [employer]. Comment on above: Method: Tympanic 06-07-2013 15:34-0500 Body weight 69.4 kg Yesenia Huach [facility].; [employer]. 06-07-2013 15:34-0500 Diastolic blood pressure 69 mm[Hg] Yesenia Bianchi [facility] [employer]. Comment on above: Patient Position: Sitting; Cuff Location : Left Arm; Cuff Size: Standard 06-07-2013 15:34-0500 Heart rate 70 /min Yesenia Vulabach [facility].; [employer]. Comment on above: Pattern: Regular 06-07-2013 15:34-0500 Systolic blood pressure 125 mm[Hg] Yesenia Bianchi [employer] [place] [facility].; [employer]. Comment on above: Patient Position: Sitting; Cuff Location : Left Arm; Cuff Size: Standard Encounters Encounter Date Encounter Type Care Provider Facility Start: 10-01-2023 End: 10-01-2023 Emergency department patient visit OTONIEL BECK [facility] Start: 07-22-2023 End: 07-22-2023 Historical Summary Otoniel Beck MD Work Phone: [place] [employer] Start: 07-18-2023 End: 07-20-2023 Evaluation and management of inpatient DR LILIA JARRELL MD Facility:[facility] Start: 07-17-2023 End: 07-20-2023 Evaluation and management of inpatient SUSANA KOLB MD [facility] Start: 07-17-2023 End: 07-17-2023 Emergency department patient visit MAX VALLEJO [facility] Start: 01-25-2023 ambulatory OTONIEL GUAN III Facil ity:[facility] Start: 01-12-2023 End: 01-12-2023 ambulatory TOONIEL RUIZINE III Facility:[facility] Start: 10-28-2020 End: 10-28-2020 Office outpatient new 30 minutes Otoniel Beck MD Work Phone: [employer] Start: 08-04-2017 End: 08-04-2017 Office outpatient visit 15 minutes Otoniel Beck MD Work Phone: [employer] Start: 06-20-2013 End: 06-23-2013 Patient encounter procedure Otoniel Beck MD Work Phone: [facility] [employer] Start: 06-19-2013 End: 06-19-2013 Patient encounter procedure Otoniel Beck MD Work Phone: [facility] [employer] Start: 06-07-2013 End: 06-08-2013 Patient encounter procedure Otoniel Bcek MD Work Phone: [facility] [employer] Procedures Date Procedure Procedure Detail Performing Clinician Start: 07-17-2023 Urinalysis MAX VALLEJO Comment on above: Result Comment: URIN ALYSIS Performed By: #### 2 [id number] #### [facility],[address] [place] [address] Start: 06-19-2013 End: 06-19-2013 X-ray exam of abdomen Kelli Plunkett Work Phone: Comment on above: Rule out bowel obstr uction. Lower abdominal pain. Pencil size stools even with high fiber diet and miralax x 2 weeks. Start: 05-10-2004 End: 05-10-2004 Tonsillectomy Kelli Estevez Work Phone: Payers Date Payer Category Payer Self-pay 1987 Unknown [id number] 1987 Unknown [id number] Unknown [id number] Unknown [id number] Social History Date Type Detail Facility Tobacco smoking status No Smoking Status Entered [facility] Sex Assigned At Male [facility] Caffeine Use Caffeine Use [place] [facility] [employer] Marital status: Marital status: ; . [employer] Tobacco Use: Tobacco Use: ; Former smoker . [employer] Ex-smoker [facility] [employer] Work Phone: [facility] [employer] Work Phone: Functional Status Date Assessment Result Facility 07-20-2023 Functional Status Room check performed [facility] 07-19-2023 Functional Status Reason SCD Rem robert/Off Ambulating in room [facility] 07-19-2023 Functional Status [facility] 07-19-2023 Functional Status Up to Chair Sitting on edge of bed [facility] 07-19-2023 Functional Status Multilevel home [facility] 07-18-2023 Functional Status [facility] 07-18-2023 Functional Status Independent [facility] 07-18-2023 Functional Status Skin Care Prev entative Intervention(s) heel(s)s elevated [facility] 07-17-2023 Functional Status Hospital bed [facility] Mental Status Date Assessment Result Facility 07-20-2023 Mental Status Oriented x 4 [facility] 07-19-2023 Mental Status Orientation Assessment Orie nted x 4 [facility] 07-18-2023 Mental Status [facility] 07-18-2023 Mental Status [facility] Clinical Notes 01-12-2023 to 07-20-2023 Note Date & Type Note Facility 07-20-2023 Hospital Discharge instructions Patient Education 07/20/2023 13:38:12 Metastatic Cancer Metastatic Cancer Metastatic cancer is cancer that has spread from the place where it started (primary site) to another part of the body. The process of cancer spreading from the primary site is called metastasis. When cancer cells metastasize, they do not change the way they look or the way they affect the body. An example is when primary lung cancer spreads to the brain. This is called metastatic lung cancer, not brain cancer. All types of cancer can spread. Some cancers are more likely to metastasize than others. The most common places that cancers metastasize to are: Bones. Liver. Lungs. What are the causes? Metastasis occurs when cancer cells spread from the primary site to another part of the body. Cancer cells can spread: Directly from one part of the body to a nearby area (local invasion). Into a lymph vessel. Cancer cells can be carried through the lymph system to lymph nodes and other parts of the body. The lymph system is a network of vessels and nodes that help protect against infections. Into the blood vessels. Cancer cells can be carried to other parts of the body through the bloodstream. What increases the risk? The following factors may make you more likely to develop this condition: The type of cancer that you have. The stage and grade of your primary cancer at the time of diagnosis. The grade and stage of the tumor. Grading and staging predict how quickly cancer cells will grow and their chances of metastasis. A large primary tumor. A higher grade of tumor. Deeper growth of tumor. A tumor that has entered the lymph system. What are the signs or symptoms? Symptoms of this condition include: Weakness. Lack of energy. Pain. Weight loss. Trouble breathing. Fluid buildup in your lungs or abdomen. Tumor growths that can be felt or seen. An enlarged liver. Some people with this condition may have no symptoms. How is this diagnosed? This condition may be diagnosed based on: Your symptoms. Physical exam. This may include: ?Blood tests to check for certain substances that are secreted by tumors (tumor markers). ?Tumor markers that increase after treatment can indicate metastasis. ?Tumor markers may be used to help diagnose metastasis in some cancers, such as colon and prostate cancer. Not all cancers have tumor markers. ?Imaging studies, such as: ?X-rays. ?Ultrasound. ?MRI. ?Other imaging tests, such as CT scans, bone scans, and PET scans. ?Testing tissue that is removed from the new cancer site (biopsy). If the cells are similar to cancer cells from the primary site, this can confirm metastatic cancer. ?Testing fluid samples from the lungs, spine, or abdomen for metastatic cancer cells. How is this treated? There are many options for treating metastatic cancer. Your treatment will depend on: The type of cancer you have. How far your cancer has advanced. Your general health. Treatment may not be able to cure metastatic cancer, but it can often relieve the symptoms. In many cases, you may have a combination of treatments. Options may include: Surgery. Medicines that kill cancer cells (chemotherapy). High-energy rays that kill cancer cells (radiation therapy). Targeted therapy. This targets specific parts of cancer cells and the area around them to block the growth and the spread of the cancer. Targeted therapy can help to limit the damage to healthy cells. Hormone therapy. Treatments that help your body fight cancer (biologic therapy). Medicines that help your body's disease-fighting system (immune system) fight cancer cells (immunotherapy). Freezing cancer cells using gas or liquid that is delivered through a needle (cryoablation). Destroying cancer cells using high-energy radio waves that are delivered through a needle-like probe (radiofrequency ablation). A procedure to block the artery that supplies blood to the tumor, which kills the cancer cells (embolization). Other medicines to manage symptoms related to cancer or cancer treatments. Follow these instructions at home: Eating and drinking Some of your treatments might affect your appetite and your ability to chew and swallow. If you are having problems eating, or if you do not have an appetite, meet with a diet and business employment specialist (dietitian). If you have side effects that affect eating, it may help to: ?Eat smaller meals and snacks often. ?Drink high-nutrition and high-calorie shakes or supplements. ?Eat bland and soft foods that are easy to eat. ?Avoid foods that are hot, spicy, or hard to swallow. Lifestyle Do not drink alcohol. Do not use any products that contain nicotine or tobacco, such as cigarettes and e-cigarettes. If you need help quitting, ask your health care provider. General instructions Take [id number] and prescription medicines only as told by your health care provider. This includes vitamins, supplements, and herbal products. Work with your health care provider to manage any side effects of treatment. Keep all follow-up visits as told by your health care provider. This is important. Where to find more information [place] [employer]: www.cancer.org National Cancer [place] (NCI): www.cancer.gov Contact a health care provider if you: Notice that you bruise or bleed easily. Are losing weight without trying. Have new or increased fatigue or weakness. Get help right away if you have: A seizure. A sudden increase in pain. A fever. Shortness of breath. Chest pain. Summary Metastatic cancer is cancer that has spread from the place where it started (primary site) to another part of the body. Cancer cells can spread directly from one part of the body to a nearby area, or they may spread through the lymph system or the bloodstream. Your risk for metastatic cancer depends on the type of cancer you have and the stage and grade of your primary cancer. Treatment may not be able to cure metastatic cancer, but it can often relieve the symptoms. This information is not intended to replace advice given to you by your health care provider. Make sure you discuss any questions you have with your health care provider. Document Released: 08/31/2005 Document Revised: 06/19/2019 Document Reviewed: 05/11/2018 [employer] Patient Education 2020 [employer]. Follow Up Care 07/17/2023 14:53:57 With:EDWARD HUNTER MD, [facility], Weekend List Address: [address] [place], [place] [address] [address] [phone] When: Unknown Comments:Patient to follow up with [facility] as discussed for 2nd opinion and evaluation. With:OTONIEL BECK MD Address: [address] [place] [address] [place] [address] [phone] When:1-2 days [facility] 03-12-2024 Discharge summary Date of Service 07/20/2023 Discharge Diagnosis 1. Episode of seizure-like activity. 2. Innumerable bilateral enhancing masses on the cerebral and cerebellar hemispheres representing metastatic disease 3. Multiple lung nodules and CAT scan of the chest concerning for malignancy. 4. L2 and L3 sclerotic lesion 5. Metabolic acidosis. 6. Lactic acidosis, resolved. 7. Encephalopathy, likely postictal due to seizure, resolved. 8. History of skin cancer status post removal Hospital Course 37-year-old gentleman with no significant past medical history and not on chronic medications who presented to [facility] initially secondary to new onset seizures at marriage conference. Patient was evaluated there initially and was loaded with Keppra and head CT demonstrated multiple supratentorial/intra-axial masses consistent with metastatic disease and CT chest PE protocol was negative for pulmonary embolism but demonstrated multiple bilateral pulmonary nodules left greater than right and trace left pleural effusion and left apical nodule/pleural thickening likely representing metastatic disease. Patient also had CT cervical spine performed which demonstrated pleural thickening and abnormal appearance of the left apex and degenerative changes. He was transferred to [facility] on 07/17/2023 for further evaluation by oncology, neurosurgery and radiation oncology. Patient had MRI brain with and without contrast performed which demonstrated innumerable bilateral enhancing masses in the cerebral and cerebellar hemispheres likely representing metastatic disease and also had a CT abdomen pelvis with IV contrast performed which demonstrated no evidence of abdominal or pelvic mass. Did show mildly enlarged mesenteric nodes nonspecific but may be reactive. It also showed L2/L3 sclerotic lesions ranging from 6 to 8 mm. Neurosurgery evaluated the patient but felt that there was no role for neurosurgery at this time given diagnosis could be established via biopsy of the lung/peripheral lesions and signed off. Oncology evaluated the patient and recommended radiation oncology evaluate as well. They recommended biopsy and further planning based upon this. Left medial upper pleural thickening was biopsied by interventional radiology on 07/20/2023 and was completed without any pneumothorax afterwards. Biopsy results are currently pending. After biopsy patient requested to be discharged immediately for second opinion at [facility] in [place]. Discussed that the biopsy results would not be available for likely 2 to 5 days and that these results would enable further planning in terms of treatment course/prognosis. During his hospitalization patient was evaluated by radiation oncology as well but chose to defer any further diagnostics or treatment/radiation therapy until second opinion obtained at [facility] as above. Patient was discharged on Keppra, dexamethasone and pantoprazole as he had been on in the hospital. It was discussed multiple times with the patient the necessity of continuing Keppra especially to prevent further recurrent seizures. It was discussed with the patient that he would need to discuss the dexamethasone dosing and titration/tapering with Dr. Hunter and that he should not remain on this medication indefinitely as it can cause stomach ulcers, hormonal shifts and other medical problems. He demonstrated understanding of this information. During this discussion he was also accompanied by his brother as well as who demonstrated understanding. Dr. Davidson and Dr. Pritchard were updated via [employer] prior to discharge as well. Allergies NKA Consults Consult to Physician - Ordered -- 07/17/23 23:22:00 COLE DRAPER KRISTINE MD, Routine, Brain mass Consult to Physician - Ordered -- 07/17/23 23:22:00 MAX DRAPER ADARSH MD, Routine, Concern for metastatic malignancy of unknown primary Imaging Results and Diagnostics XR Chest 1 View Result Date: July 20, 2023 Verified By: CÉSAR AREVALO MD CLINICAL STATEMENT: IMPRESSION: 1. No visible postprocedural pneumothorax.2. Areas of left-sided airspace opacity. CT Abdomen/Pelvis w/Contrast Result Date: July 18, 2023 Verified By: ERIC CONNOR MD CLINICAL STATEMENT: IMPRESSION: 1. There is no evidence of abdominal or pelvic mass. There are mildlyenlarged mesenteric nodes, nonspecific, which may be reactive.2. At the posterior L2 vertebral body, there is a nonspecific 8 mm scleroticlesion. There is a 7 mm sclerotic lesion of anterior L3 vertebral body.There is 7 mm and 6 mm sclerotic lesion of the right femoral head.Follow-up PET-CT study or nuclear medicine bone scan may be useful forfurther evaluation for potential osseous metastases, if clinically indicated. MRI Brain w/ + w/o Contrast Result Date: July 18, 2023 Verified By: AI GERARD MD CLINICAL STATEMENT: IMPRESSION: Innumerable bilateral enhancing masses in the cerebral and cerebellarhemispheres, this represents metastatic disease till proven otherwise. Objective Vitals and Measurements T: 36.5 C (Oral) TMIN: 36.5 C (Oral) TMAX: 36.7 C (Oral) HR: 87(Apical) RR: 20 BP: 125/81 SpO2: 96% Weight Dosing Weight: 70.5 kg (07/17/23) No acute distress on evaluation. Patient lying in bed after biopsy. Lungs clear to auscultation. Abdomen soft, nontender. Alert and oriented x 4. Moving all extremities without difficulty. No jaundice or large rashes. No gross musculoskeletal deformities. Pupils equal and reactive bilaterally. Regular heart sounds. Code Status Code Status - Ordered -- 07/17/23 22:48:00 EST, Full Code, Constant Order Admission Date 07/17/2023 Discharge Date 07/20/2023 Patient Instructions Please follow-up at [facility] as discussed for second opinion. Please note biopsy results are currently pending and you will be notified once these have been processed and are available. You are being discharged on the current medications you have been recieving while hospitalized including dexamethasone to help decrease swelling of the brain as well as Keppra which is a medication to help prevent seizures. You also were prescribed pantoprazole which is a medication which protect your stomach while you are on steroids such as dexamethasone. You must not remain on dexamethasone indefinitely and please follow-up with Dr. Toshia carnes titration/tapering of this medication as remaining on it indefinitely can cause major problems with hormones in your body as well as lead to increased risk of stomach ulcers etc.Please follow-up at [facility] as discussed for second opinion. Please note biopsy results are currently pending and you will be notified once these have been processed and are available. You are being discharged on the current medications you have been recieving while hospitalized including dexamethasone to help decrease swelling of the brain as well as Keppra which is a medication to help prevent seizures. You also were prescribed pantoprazole which is a medication which protect your stomach while you are on steroids such as dexamethasone. You must not remain on dexamethasone indefinitely and please follow-up with Dr. Toshia carnes titration/tapering of this medication as remaining on it indefinitely can cause major problems with hormones in your body as well as lead to increased risk of stomach ulcers etc. Medications New Prescription dexAMETHasone (dexAMETHasone 4 mg oral tablet)1 tab(s) by mouth four (4) times a day for 5 Days. Refills: 0. levETIRAcetam (Keppra 500 mg oral tablet)1 tab(s) by mouth two (2) times a day. Refills: 0. pantoprazole (Protonix 40 mg oral enteric coated tablet)1 tab(s) by mouth once a day before a meal. Refills: 0. Follow Up Follow Up with EDWARD HUNTER MD, [facility], Weekend List When Why: Patient to follow up with [facility] as discussed for 2nd opinion and evaluation. Where: [address] [place] [address]- [phone] Follow Up with OTONIEL BECK MD When Within 1-2 days Where: [address] [phone] Discharge Diet Discharge Diet - Ordered -- No changes were made to your diet during your hospital stay. Please resume your pre hospitalization diet on discharge., 07/20/23 13:32:00 EDT Discharge Activity Discharge Activity - Ordered -- NO activity restrictions, 07/20/23 13:32:00 EDT Condition on Discharge Stable, fair Readmission Risk/Palliative Score LACE Score: 11 (07/19/23 07:36:00) Palliative Total Score: 2 (07/19/23 07:36:00) Discharge Disposition [facility] [place], home Information Provided To Patient, , family Time Spent 45 minutes Digitally Signed by MATIAS RIVERA DO on 07/20/2023 01:43 PM Digitally Signed by MATIAS RIVERA DO on 07/20/2023 01:44 PM [facility] 07-20-2023 Note Discharge Instructions Thank you for allowing [facility] to assist you with your healthcare needs. The following is important discharge information regarding your hospital visit. Your Care Team OTONIEL BECK MD Your Diagnosis Multiple nodules of lung Secondary malignant neoplasm of brain What to do next Instructions From Your Doctor Please follow-up at [facility] as discussed for second opinion. Please note biopsy results are currently pending and you will be notified once these have been processed and are available. You are being discharged on the current medications you have been recieving while hospitalized including dexamethasone to help decrease swelling of the brain as well as Keppra which is a medication to help prevent seizures. You also were prescribed pantoprazole which is a medication which protect your stomach while you are on steroids such as dexamethasone. You must not remain on dexamethasone indefinitely and please follow-up with Dr. Hunter to trice titration/tapering of this medication as remaining on it indefinitely can cause major problems with hormones in your body as well as lead to increased risk of stomach ulcers etc.Please follow-up at [facility] as discussed for second opinion. Please note biopsy results are currently pending and you will be notified once these have been processed and are available. You are being discharged on the current medications you have been recieving while hospitalized including dexamethasone to help decrease swelling of the brain as well as Keppra which is a medication to help prevent seizures. You also were prescribed pantoprazole which is a medication which protect your stomach while you are on steroids such as dexamethasone. You must not remain on dexamethasone indefinitely and please follow-up with Dr. Hunter to trice titration/tapering of this medication as remaining on it indefinitely can cause major problems with hormones in your body as well as lead to increased risk of stomach ulcers etc. Follow Up Appointments Follow Up with EDWARD HUNTER MD, [facility], Weekend List When Why: Patient to follow up with [facility] as discussed for 2nd opinion and evaluation. Where: [address] [place] [address]- [phone] Follow Up with [facility] When Within 1-2 days Where: [address] [place] [address]- [phone] The Following Activity and Diet Have Been Ordered for You Discharge Activity - Ordered -- NO activity restrictions, 07/20/23 13:32:00 EDT Discharge Diet - Ordered -- No changes were made to your diet during your hospital stay. Please resume your pre hospitalization diet on discharge., 07/20/23 13:32:00 EDT The Following Equipment Has Been Ordered for You No qualifying data available. The Following Treatments Have Been Ordered for You Discharge Labs No qualifying data available. Discharge Radiology No qualifying data available. Other Therapies No qualifying data available. Post Acute Orders No qualifying data available. Someone Will Contact You Regarding These Home Health Referrals No home referrals have been ordered for you. No one will call you. Allergies NKA Medications Please ask your primary doctor or pharmacist before taking any other medication not listed, including over the counter drugs, herbal medications, vitamins and or supplements as they may interact with your home medications. What How Much When Instructions Last Dose New dexAMETHasone (dexAMETHasone 4 mg oral tablet) 1 tab(s) by mouth Four (4) times a day Duration: 5 Days Pickup at [facility] [address] New levETIRAcetam (Keppra 500 mg oral tablet) 1 tab(s) by mouth Two (2) times a day Pickup at [facility] [address] New pantoprazole (Protonix 40 mg oral enteric coated tablet) 1 tab(s) by mouth Once a day before a meal Pickup at [facility] Pharmacy Information [facility]: [address] [place], [place] [phone] Please take this list to your next doctor s visit. Bring all medications you take, including over the counter medications, herbals and other supplements with you to your doctor s visit. Patients and families are reminded to discard old lists and to update any records with all medication providers or retail pharmacies. Education Materials Metastatic Cancer Metastatic cancer is cancer that has spread from the place where it started (primary site) to another part of the body. The process of cancer spreading from the primary site is called metastasis. When cancer cells metastasize, they do not change the way they look or the way they affect the body. An example is when primary lung cancer spreads to the brain. This is called metastatic lung cancer, not brain cancer. All types of cancer can spread. Some cancers are more likely to metastasize than others. The most common places that cancers metastasize to are: Bones. Liver. Lungs. What are the causes? Metastasis occurs when cancer cells spread from the primary site to another part of the body. Cancer cells can spread: Directly from one part of the body to a nearby area (local invasion). Into a lymph vessel. Cancer cells can be carried through the lymph system to lymph nodes and other parts of the body. The lymph system is a network of vessels and nodes that help protect against infections. Into the blood vessels. Cancer cells can be carried to other parts of the body through the bloodstream. What increases the risk? The following factors may make you more likely to develop this condition: The type of cancer that you have. The stage and grade of your primary cancer at the time of diagnosis. The grade and stage of the tumor. Grading and staging predict how quickly cancer cells will grow and their chances of metastasis. A large primary tumor. A higher grade of tumor. Deeper growth of tumor. A tumor that has entered the lymph system. What are the signs or symptoms? Symptoms of this condition include: Weakness. Lack of energy. Pain. Weight loss. Trouble breathing. Fluid buildup in your lungs or abdomen. Tumor growths that can be felt or seen. An enlarged liver. Some people with this condition may have no symptoms. How is this diagnosed? This condition may be diagnosed based on: Your symptoms. Physical exam. This may include: ? Blood tests to check for certain substances that are secreted by tumors (tumor markers). ? Tumor markers that increase after treatment can indicate metastasis. ? Tumor markers may be used to help diagnose metastasis in some cancers, such as colon and prostate cancer. Not all cancers have tumor markers. ? Imaging studies, such as: ? X-rays. ? Ultrasound. ? MRI. ? Other imaging tests, such as CT scans, bone scans, and PET scans. ? Testing tissue that is removed from the new cancer site (biopsy). If the cells are similar to cancer cells from the primary site, this can confirm metastatic cancer. ? Testing fluid samples from the lungs, spine, or abdomen for metastatic cancer cells. How is this treated? There are many options for treating metastatic cancer. Your treatment will depend on: The type of cancer you have. How far your cancer has advanced. Your general health. Treatment may not be able to cure metastatic cancer, but it can often relieve the symptoms. In many cases, you may have a combination of treatments. Options may include: Surgery. Medicines that kill cancer cells (chemotherapy). High-energy rays that kill cancer cells (radiation therapy). Targeted therapy. This targets specific parts of cancer cells and the area around them to block the growth and the spread of the cancer. Targeted therapy can help to limit the damage to healthy cells. Hormone therapy. Treatments that help your body fight cancer (biologic therapy). Medicines that help your body's disease-fighting system (immune system) fight cancer cells (immunotherapy). Freezing cancer cells using gas or liquid that is delivered through a needle (cryoablation). Destroying cancer cells using high-energy radio waves that are delivered through a needle-like probe (radiofrequency ablation). A procedure to block the artery that supplies blood to the tumor, which kills the cancer cells (embolization). Other medicines to manage symptoms related to cancer or cancer treatments. Follow these instructions at home: Eating and drinking Some of your treatments might affect your appetite and your ability to chew and swallow. If you are having problems eating, or if you do not have an appetite, meet with a diet and business employment specialist (dietitian). If you have side effects that affect eating, it may help to: ? Eat smaller meals and snacks often. ? Drink high-nutrition and high-calorie shakes or supplements. ? Eat bland and soft foods that are easy to eat. ? Avoid foods that are hot, spicy, or hard to swallow. Lifestyle Do not drink alcohol. Do not use any products that contain nicotine or tobacco, such as cigarettes and e-cigarettes. If you need help quitting, ask your health care provider. General instructions Take ivmo-aii-ptzgomi and prescription medicines only as told by your health care provider. This includes vitamins, supplements, and herbal products. Work with your health care provider to manage any side effects of treatment. Keep all follow-up visits as told by your health care provider. This is important. Where to find more information [place] [employer]: www.cancer.org National Cancer [place] (NCI): www.cancer.gov Contact a health care provider if you: Notice that you bruise or bleed easily. Are losing weight without trying. Have new or increased fatigue or weakness. Get help right away if you have: A seizure. A sudden increase in pain. A fever. Shortness of breath. Chest pain. Summary Metastatic cancer is cancer that has spread from the place where it started (primary site) to another part of the body. Cancer cells can spread directly from one part of the body to a nearby area, or they may spread through the lymph system or the bloodstream. Your risk for metastatic cancer depends on the type of cancer you have and the stage and grade of your primary cancer. Treatment may not be able to cure metastatic cancer, but it can often relieve the symptoms. This information is not intended to replace advice given to you by your health care provider. Make sure you discuss any questions you have with your health care provider. Document Released: 08/31/2005 Document Revised: 06/19/2019 Document Reviewed: 05/11/2018 [employer] Patient Education 2020 [employer]. Additional Information VACCINATE! IT SAVES LIVES! Members of the community who have not yet received the COVID-19 vaccine and would like to receive it can visit one of [facility] vaccine clinics. There are many vaccine clinic locations within the [facility]. For locations and available times, please visit https://gettheshot.coronavirus.[place].gov/. It is important to note that some COVID mobile vaccine clinics are held outdoors and may be canceled in rainy or stormy conditions. To learn more about pediatric vaccinations (ages 5-11), we invite you to visit the [employer] webpage. https://www.[employer].org/pa ges/5449-Rwpns-Hvnkgxrvhwo-Freque rtzn-Wpudf-[email or web address].html To learn more about the COVID-19 vaccine, we invite you to visit the CDC website for a list of frequently asked questions.https://www.cdc.gov/cor onavirus/2019-ncov/vaccines/faq.h tml [facility] Patient Portal Access Instructions: Stay connected with your healthcare team and access your personal medical information anytime with the [facility] Patient Portal. Please follow the directions below to create your [facility] account: 1.Access the email account you provided upon registration to the hospital/physician office.2.Look for an invitation email from [facility].3.Open the email and access the invitation link: Accept Invitation to [facility].4.Fill in the required christianson to create your account. To access your account, visit [email or web address]. Click the blue button labeled Access Patient Portal and then log in with the username and password that you created in the steps above. You will be able to view your test results, lab results, a summary of your visits, upcoming appointments and more. There is also a convenient messaging option where you can send secure messages to your provider. In addition, you will have the ability to download any documents or summaries to your computer and/or send the information securely to a physician. Remember that your healthcare information is confidential, so carefully consider who you will allow to register on the [facility] Patient Portal for access to your information. You can also access the [facility] Patient Portal on the [employer] jessa. Simply click on Patient Portal and then log into your account. If you would like to receive a full copy of your medical records, please contact the [facility] Medical Records Department by calling [phone], Wednesday through Wednesday between 8 a.m. and 4:30 p.m. HOW TO SAFELY DISPOSE OF PRESCRIPTION MEDICATIONS Please use one of the following methods to safely dispose of your unused medications. 1.Use a drug disposal kit: the drug disposal pouch allows you to safely discard your old and unused drugs. Ask your nurse to give you one when you are discharged.2.Visit a local take-back location: Many local pharmacies and police departments have programs that collect old and unwanted prescription drugs. Call your local pharmacy or go to http://Fleecs.Channelkit/0O4Dw2j to find one close to you.3.Make use of household items: Use cat litter or old coffee grounds to dispose medications if other options are not available. Mix your drugs with these household products, seal them in an airtight container and throw it into the garbage. Call [facility]: [phone] to be sure your drugs can be disposed of in this way. Some medicines may require a different approach.4.Never flush your medications down the toilet. IF YOU HAVE BEEN PRESCRIBED AN OPIOID FOR PAIN If you have been prescribed an opioid (such as hydrocodone, oxycodone or morphine), it is critical to understand the possible side effects and risks of opioid pain medications. Even when taken as directed, opioids can have several side effects including: Tolerance, meaning you might need to take more of a medication for the same pain relief. Nausea, vomiting and/or constipation. Sleepiness, dizziness, dry mouth, confusion, depression or itching. Physical dependence, meaning you have withdrawal symptoms when a medication is stopped, can develop within a few days. KNOW YOUR RESPONSIBILITIES It is important to know exactly how much and how often to take the opioid pain medications you are prescribed. Never take opioids in higher amounts or more often than prescribed. Do not combine opioids with alcohol or other drugs that cause drowsiness, such as benzodiazepines, also known as benzos, including diazepam and alprazolam, muscle relaxants or sleep aids. Never sell or share prescription opioids. This is illegal. Store opioids in a secure place and out of reach of others (including children, family, friends and visitors). The last page of this document has been signed and retained as a CHART COPY. Signatures Patient Education Materials Metastatic Cancer Medication Leaflets My discharge plan and instructions have been reviewed and explained to me and I,BROWN OTTONIEL Wilkins understand my current condition and have read and understand these discharge instructions. I have received a written copy of the plan/instructions. If I have questions, I am aware that I should contact my doctor. Patient/Patient Relations Specialist Signature: Date/Time: Relationship to Patient: ____ Witness Name/Signature: Date/Time: [facility] 07-20-2023 Note ORIGINAL EXAMINATION: ONE XRAY VIEW OF THE CHEST 07/20/2023 11:19 am COMPARISON: CT biopsy same date HISTORY: ORDERING SYSTEM PROVIDED HISTORY: Reason for Exam: Left upper pleural biopsy FINDINGS: The cardiomediastinal silhouette is normal. Patchy airspace opacities at the left base. Left apical opacity. The right lung appears clear other than mild right apical opacity which could be due to pleural thickening or scarring. There is no large effusion. No pneumothorax. Contrast is seen within the splenic flexure. IMPRESSION: 1. No visible postprocedural pneumothorax. 2. Areas of left-sided airspace opacity. Interpreted by: César Arevalo MD Preliminary Report By: César Arevalo MD Electronically signed By César Arvealo MD Dictated Date: 07/20/2023 11:24:41 AM Prelim Date: 07/20/2023 11:26:39 AM Sign Date: 07/20/2023 11:26:39 AM Ordering Provider: [facility] 07-20-2023 Note IR Procedure Record Summary Primary Physician: Finalized Date/Time: 07/20/23 11:17:53 Pt. Name: OTTONIEL DASILVA Franky [place]/Sex: 1985 Male [facility] Rec #: [id number] Physician: SUSANA KOLB MD Financial #: [id number] Pt. Type: I Room/Bed: 56/A Admit/Disch: 07/17/23 22:33:00 - Institution: Allergies identified in patient's electronic medical record at time of printing on 07/20/23 Entry 1 Substance NKA Reaction Type Allergy Last Modified By: Anamaria Molina LPN 07/17/23 23:03:49 Case Attendance- IR Entry 1 Entry 2 Entry 3 Case Attendee FIDEL SMITH MD, RN Jennifer M Myers, Jessica TECH Role Performed Radiologist Procedure Procedure Nurse Glass Deposition Tender Details Time In 07/20/23 09:43:00 07/20/23 09:43:00 07/20/23 09:43:00 Time Out 07/20/23 10:34:00 07/20/23 10:36:00 07/20/23 10:36:00 Procedure/Preference IR Biopsy Lung (SN) IR Biopsy Lung (SN) IR Biopsy Lung (SN) Card Last Modified By: NICOLASA Frye RN Jennifer M Fichter, RN Jennifer M 07/20/23 11:16:54 07/20/23 11:16:54 07/20/23 11:16:54 Radiology Procedures- IR Entry 1 Procedure/Preference IR Biopsy Lung (SN) Actual Procedure ir biopsy lung Card Actual Procedure ct/ir lung biopsy Primary Procedure Yes Continued Primary Surgeon FIDEL SMITH MD Anesthesia/Sedation IV Sedation, Local Type Additional Procedure Times Start 07/20/23 09:46:00 Stop 07/20/23 10:33:00 Specialty Service SN Radiology Procedure EBL 3 mL Last Modified By: NICOLASA Frye 07/20/23 10:33:37 Radiology Procedure Details - IR Entry 1 Radiology Sedation Case Times Sedation Start Time 07/20/23 09:46:00 Sedation Stop Time 07/20/23 10:30:00 Sedation Total Time 44 minutes Radiology - Fluid/Drainage Fluid Amount mL: 0 Radiology Contrast Contrast Used? No Dose 0 Radiology Flouroscopy Fluoroscopy Used? Yes Fluoro Dose (mGy) 611.48 Fluoro Time 14.3 seconds Radiology Local Local Used? Yes Local Type: LIDOCAINE 2% Local Dose 20cc Radiology Procedure Site Site/Location l upper back Site Condition No complications Dressing Type Bandaids, Gauze sponge 4 X 4, Tagaderm Last Modified By: NICOLASA Frye 07/20/23 10:35:43 Cultures and Specimens- IR Entry 1 Kind Specimen Type Organ Date/Time 07/20/23 10:23:00 Source l upper lung x 12 core biopsy gel foam used successful biopsy patient tolerated Last Modified By: NICOLASA Frye 07/20/23 10:29:32 General Case Data - IR Entry 1 Case Information Room AH IR CT Case Level IR Level 2 Wound Class None Specialty SN Radiology Procedure ASA Class None Diagnosis Preop Diagnosis brain mass mets Postop Same As Preop Yes Postop Diagnosis brain mass mets Last Modified By: NICOLASA Frye 07/20/23 09:22:57 Medication Administration- IR Entry 1 Entry 2 Entry 3 Medication versed fentanyl lidocaine 2% Time Administered 07/20/23 09:46:00 07/20/23 09:46:00 07/20/23 10:16:00 Route of Admin IV Push IV Push Local Dose 1mg 25mcg 20ml Volume 1 mL .5 mL 20 mL VORB * *Verbal Order Read Back (VORB) is required for NON- PHYSICIAN administration of medications. Administered by Yes No Yes Physician? Administered by: NICOLASA Frye RN Jennifer M KAR, MITRYAN MD Verbal Order Read Back from: Last Modified By: NICOLASA Frye RN Jennifer M Fichter, RN Jennifer M 07/20/23 09:58:12 07/20/23 09:58:12 07/20/23 10:19:24 Entry 4 Entry 5 Entry 6 Medication benadryl versed fentanyl Time Administered 07/20/23 09:47:00 07/20/23 09:55:00 07/20/23 10:02:00 Route of Admin IV Push IV Push IV Push Dose 50mg 1mg 25mcg Volume 1 mL 1 mL .5 mL VORB * *Verbal Order Read Back (VORB) is required for NON- PHYSICIAN administration of medications. Administered by No Yes No Physician? Administered by: NICOLASA Frye RN Jennifer M Fichter, RN Jennifer M Verbal Order Read Back from: Last Modified By: NICOLASA Frye RN Jennifer M Fichter, RN Jennifer M 07/20/23 11:17:50 07/20/23 09:58:12 07/20/23 10:03:29 Entry 7 Entry 8 Entry 9 Medication versed fentanyl versed Time Administered 07/20/23 10:02:00 07/20/23 09:55:00 07/20/23 10:10:00 Route of Admin IV Push IV Push IV Push Dose 1mg 25mcg 1mg Volume 1 mL .5 mL 1 mL VORB * *Verbal Order Read Back (VORB) is required for NON- PHYSICIAN administration of medications. Administered by Yes No Yes Physician? Administered by: NICOLASA Frye RN Jennifer M Fichter, RN Jennifer M Verbal Order Read Back from: Last Modified By: NICOLASA Frye RN Jennifer M Fichter, RN Jennifer M 07/20/23 10:03:29 07/20/23 10:03:54 07/20/23 10:14:55 Entry 10 Medication fentanyl Time Administered 07/20/23 10:10:00 Route of Admin IV Push Dose 25mcg Volume .5 mL VORB * *Verbal Order Read Back (VORB) is required for NON- PHYSICIAN administration of medications. Administered by No Physician? Administered by: NICOLASA Frye Verbal Order Read Back from: Last Modified By: NICOLASA Frye 07/20/23 10:14:55 Procedure Case Times- IR Entry 1 Patient In Procedure Patient In OR 07/20/23 09:43:00 Patient Out of OR 07/20/23 10:36:00 Procedure Start/Stop Procedure Start Time 07/20/23 09:46:00 Procedure Stop Time 07/20/23 10:33:00 Last Modified By: NICOLASA Frye 07/20/23 10:35:52 Immediate Post Procedure Note - IR Entry 1 Immediate Post Yes Findings 12x18 right pleural Procedure Note mass;no ptx displayed for Physician to review Closure Technique Closure Technique Other than Primary Last Modified By: NICOLASA Frye 07/20/23 10:33:18 Immediate Post Procedure Note - IR Signed By: FIDEL SMITH MD 07/20/23 10:31 Allergy Information- IR Entry 1 Allergies Reviewed? Yes Allergies Reviewed Medical Record With Last Modified By: NICOLASA Frye 07/20/23 09:16:51 Radiology Protocols/Time Out- IR Entry 1 Preprocedure Clinician Verifies Correct patient ID When Clinically Consent for using name & date Indicated Administration of or MRN, Accurate Blood, Confirmation of procedure, complete correct side(s) and Informed Consent, H & P site(s), Correct update immediately diagnostic and prior to procedure, if radiology tests applicable available, Required blood products, implants, devices and/or special equipment available, Preop antibiotics sent with patient/available in OR OR/Procedure Room/Bedside Time 07/20/23 09:45:00 Clinician Verifies Correct patient identity including EMR & records using name and date or medical record number, Accurate procedure consent form, Correct patient position, Necessary equipment is available, Anticipated non-routine events with surgical team (case duration, estimated blood loss, patient specific concerns)., Giles patient factors for recovery and management identified with surgical team. When Applicable Consent for Team Members FIDEL SMITH MD, Administration of Present for Time Out NICOLASA Frye, Blood, Confirmation Roxie Carroll correct side and site marked, Relevant images and results are properly labeled and appropriately displayed, Confirm/obtain preop antibiotic order., Alcohol based prep dry, Double verification of sterility indicators complete Instrument Sterility Team Members FIDEL SMITH MD Verifying Sterility Procedure IR Biopsy Lung (SN) Last Modified By: NICOLASA Frye 07/20/23 09:52:10 Skin Prep- IR Entry 1 Procedure IR Biopsy Lung (SN) Skin Prep Prep Area Back Side Left By FIDEL SMITH MD Prep Agents Chloraprep Hair Removal Method N/A Last Modified By: NICOLASA Frye 07/20/23 10:07:05 Patient Positioning- IR Entry 1 Procedure IR Biopsy Lung (SN) Body Position OP Prone Feet Uncrossed? Yes Pressure Points Yes Checked Last Modified By: NICOLASA Frye 07/20/23 09:19:59 Radiology Procedure Plan - IR Entry 1 Radiology - Nursing Care Plan Outcome Statement The patient Outcome Statement The patient receives demonstrates knowledge Cont. appropriate of the expected medication(s), safely responses to the administered during the operative/invasive perioperative/invasive procedure., The period., The patient is patient's value system, free from signs and lifestyle, ethnicity, symptoms of injury and culture are caused by extraneous considered, respected, objects (equipment, and incorporated in the instrumentation, perioperative plan of sponges, or sharps)., care., The patient is The patient is free free from signs and from signs and symptoms symptoms of infection., of electrical injury., The patient is free The patient is at or from signs and symptoms returning to of injury related to normothermia at the positioning., The conclusion of the patient is free from immediate signs and symptoms of postoperative/invasive chemical injury. period., The patient is free from signs and symptoms of laser injury. 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 Completing Procedure Plan Last Modified By: NICOLASA Frye 07/20/23 09:21:20 Transfer Post Procedure- IR Entry 1 RAD - Transport to Recovery Patient Transported IV Via Patient Bed With Post-op Destination Receiving Post Procedure Time Out Double Verification Yes Date/Time Verified 07/20/23 10:36:00 of ID band on patient Completed Verfied ID Band on NICOLASA Frye by Last Modified By: NICOLASA Frye 07/20/23 10:35:49 Case Comments Finalized By: NICOLASA Frye Document Signatures Signed By: NICOLASA Frye 07/20/23 11:17 [facility] 07-20-2023 Procedure note Brief IR Post Procedure Note - Inpatient/Obs Pre Procedure Dx: Lung lesions, pleural thickening left, brain lesions Post Procedure Dx: Same Procedure: 1. CT core biopsy Trauma Director: Sarah Paper Machine Operator: None Anesthesia: Local, moderate sedation EBL: Minimal Complications:None Status: Stable Findings: 1. Successful 12 x 18G cores of left medial upper pleural thickening. No immediate ptx. Gelfoam embolized for some bleeding. Plan: 1. Post sedation VS check 2. Resume diet 3. FU CXR pending Full report to follow. Orders in [employer]. Fidel Smith MD Vascular & Interventional Radiology [facility] ([facility]) [email or web address] Pager: [phone] [facility] Dept (30/11): [phone] [facility] [phone] [facility] Digitally Signed by FIDEL SMITH MD on 07/20/2023 10:57 AM [facility] 07-20-2023 Note ORIGINAL HISTORY: ORDERING SYSTEM PROVIDED HISTORY: Reason for Exam: 12 sedation time-44 min. 12 cores in formalin. 20cc lido. medeasy 18x16 and corca 18x15. gelfoam used. TECHNIQUE: This exam was performed according to our departmental dose-optimization program which includes automated exposure control, adjustment of the mA and/or kVp according to patient size and/or use of iterative reconstruction technique where applicable. PROCEDURE: 1. CT guided pleural mass core biopsy 2. BIOPSY TARGET LOCATION: Medial left upper pleural nodularity ACCESS SITE: Left posterior chest TOUCHPREP: No EDUCATIONAL RECRUITER: Dr. Smith ASSISTANT MANAGER PT: None MATERIALS: 18 g core biopsy ANESTHESIA: Moderate conscious sedation administered. Patient was monitored throughout the procedure by nurse. INTRASERVICE TIME (min): 44 FINDINGS: PRE: Moderate nodularity of the medial superior left hemithorax redemonstrated which was targeted. Basilar consolidation was also noted at the lung bases with some nodular foci. Pleural lesion was targeted given low risk of pneumothorax. POST: No pneumothorax.Some gas foci Gel-Foam injection noted. The procedure, risks, limitations, and alternatives were discussed. All questions answered. Written informed consent obtained. Percutaneous site was sterilely prepped and draped. Time out performed. After administering local anesthesia, guide needle was advanced to the lesion under CT guidance. Core samples obtained from the lesion and submitted to pathology and/or microbiology. The lesion was extremely firm and that the 1st 18 gauge biopsy device was unable to obtain adequate samples. Different 18 gauge biopsy device was then used. Number of cores documented in brief post procedure note on [employer]. Some bleeding from the guide needle was noted which was treated with Gelfoam slurry with immediate hemostasis. All needles removed. Sterile dressing placed. COMPLICATION: None EBL: Minimal CONDITION: Stable IMPRESSION: 1. Successful CT guided core pleural biopsy. Interpreted by: Fidel Smith MD Preliminary Report By: Fidel Smith MD Electronically signed By Fidel Smith MD Dictated Date: 07/20/2023 11:29:00 PM Prelim Date: 07/20/2023 11:31:24 PM Sign Date: 07/20/2023 11:31:24 PM Ordering Provider: [facility] 07-20-2023 Oncology Progress note Date of Service 07/19/2023 Chief Complaint brain mets This is a split/shared visit between Dr. Pritchard and myself Subjective Today pt is resting in bed, family at bedside. no new complaints Lab Results Test Name Test Result Date/TimeWBC 11.3 10^3/mcL (High) 07/19/2023 03:46 EDT Hgb 15.2 G/dL 07/19/2023 03:46 EDT Platelet 285 10^3/mcL 07/19/2023 03:46 EDT Objective Vitals and Measurements T: 36.5 C (Oral) TMIN: 36.5 C (Oral) TMAX: 36.7 C (Oral) HR: 90 RR: 18 BP: 116/81 SpO2: 97% 14 system review is negative except as charted in the HPI Intake and Output 7AM Yesterday to 7AM Today Intake and Output (Last 24 hours) Intake Oral Intake 1560.00 Output Stool Count 0.00 Urine Count 6.00 Emesis Count 0.00 Total Summary Total Intake 1560.00 Total Output 0.00 Fluid Balance 1560.00 Physical Exam General Appearance: no acute distress Neurological: A&Ox3 follows commands Psychiatric: appropriate mood and affect Weight Dosing Weight: 70.5 kg (07/17/23) Medications Medications (11) Active Scheduled: (3) dexamethasone 4 mg tablet 4 mg 1 tab(s), Oral, q6hr levETIRAcetam 500 mg tablet 500 mg 1 tab(s), Oral, BID pantoprazole 40 mg EC tablet 40 mg 1 tab(s), Oral, qDayAC Continuous: (0) PRN: (8) acetaminophen 325 mg Tablet 650 mg 2 tab(s), Oral, q4h acetaminophen 325 mg Tablet 650 mg 2 tab(s), Oral, q4h albuterol - ipratropium 2.5 mg-0.5 mg/3 mL Inhal Merlene UD 3 mL, Inhalation, q4hRT dextrose 50% Solution Disp syringe 50 mL 12.5 gram(s) 25 mL, IV Push, AsDirected guaifenesin 100 mg/5 mL Liquid SUGAR-FREE 120 mL 200 mg 10 mL, Oral, q4h melatonin 3 mg tablet 3 mg 1 tab(s), Oral, qHS ondansetron 2 mg/ 1 mL 2 mL INJ 4 mg 2 mL, IV Push, q4h polyethylene glycol 3350 - UD packet 17 gram(s) 15 mL, Oral, qDay Lab Results 07/18 03:46 WBC: 11.3 H Hgb: 15.2 Hct: 45.0 Platelet: 285 Neutrophil %: 88.9 H Glucose Level: 124 H Sodium Level: 140 Potassium Level: 4.7 BUN: 14.0 Creatinine Lvl (s): 0.85 07/17 04:55 WBC: 12.6 H Hgb: 14.6 Hct: 43.1 Platelet: 285 Neutrophil %: 85.0 H Protime: 13.1 PT International Ratio: 1.2 Glucose Level: 125 H Sodium Level: 142 Potassium Level: 4.1 BUN: 15.0 Creatinine Lvl (s): 0.77 Imaging Results and Diagnostics (07/18/2023 17:[address] Abdomen/Pelvis w/Contrast) IMPRESSION: 1. There is no evidence of abdominal or pelvic mass. There are mildly enlarged mesenteric nodes, nonspecific, which may be reactive. 2. At the posterior L2 vertebral body, there is a nonspecific 8 mm sclerotic lesion. There is a 7 mm sclerotic lesion of anterior L3 vertebral body. There is 7 mm and 6 mm sclerotic lesion of the right femoral head. [1] (07/18/2023 14:04 EDT MRI Brain w/ + w/o Contrast) IMPRESSION: Innumerable bilateral enhancing masses in the cerebral and cerebellar hemispheres, this represents metastatic disease till proven otherwise. [2] EKG No qualifying data available. Assessment/Plan Seizure, patient found to have brain mets, MRI of the brain showed innumerable bilateral enhancing masses in the cerebellar and cerebral hemisphere, neurosurgery following CT of the chest done at [facility] showed multiple bilateral pulmonary nodules, trace pleural effusion CT abdomen/pelvis showed sclerotic lesions Patient on Keppra and Decadron 4 mg every 6 hours Lung biopsy ordered, will follow for results Consulted radiation oncology to evaluate for treatment of brain lesions Patient mentioned being evaluated at tertiary hospital, can consider outpatient referral if patient would like to be seen at or [facility] Discussed with Dr. Pritchard. Please see addendum for further recommendations [1] CT Abdomen/Pelvis w/Contrast; ERIC CONNOR MD 07/18/2023 17:50 EDT [2] MRI Brain w/ + w/o Contrast; AI GERARD MD 07/18/2023 14:04 EDT Digitally Signed by LI CROOK on 07/19/2023 03:22 PM [facility] 07-19-2023 Oncology Progress note Date of Service 07/19/2023 Chief Complaint brain mets This is a split/shared visit between Dr. Pritchard and myself Subjective Today pt is resting in bed, family at bedside. no new complaints Lab Results Test Name Test Result Date/TimeWBC 11.3 10^3/mcL (High) 07/19/2023 03:46 EDT Hgb 15.2 G/dL 07/19/2023 03:46 EDT Platelet 285 10^3/mcL 07/19/2023 03:46 EDT Objective Vitals and Measurements T: 36.5 C (Oral) TMIN: 36.5 C (Oral) TMAX: 36.7 C (Oral) HR: 90 RR: 18 BP: 116/81 SpO2: 97% 14 system review is negative except as charted in the HPI Intake and Output 7AM Yesterday to 7AM Today Intake and Output (Last 24 hours) Intake Oral Intake 1560.00 Output Stool Count 0.00 Urine Count 6.00 Emesis Count 0.00 Total Summary Total Intake 1560.00 Total Output 0.00 Fluid Balance 1560.00 Physical Exam General Appearance: no acute distress Neurological: A&Ox3 follows commands Psychiatric: appropriate mood and affect Weight Dosing Weight: 70.5 kg (07/17/23) Medications Medications (11) Active Scheduled: (3) dexamethasone 4 mg tablet 4 mg 1 tab(s), Oral, q6hr levETIRAcetam 500 mg tablet 500 mg 1 tab(s), Oral, BID pantoprazole 40 mg EC tablet 40 mg 1 tab(s), Oral, qDayAC Continuous: (0) PRN: (8) acetaminophen 325 mg Tablet 650 mg 2 tab(s), Oral, q4h acetaminophen 325 mg Tablet 650 mg 2 tab(s), Oral, q4h albuterol - ipratropium 2.5 mg-0.5 mg/3 mL Inhal Merlene UD 3 mL, Inhalation, q4hRT dextrose 50% Solution Disp syringe 50 mL 12.5 gram(s) 25 mL, IV Push, AsDirected guaifenesin 100 mg/5 mL Liquid SUGAR-FREE 120 mL 200 mg 10 mL, Oral, q4h melatonin 3 mg tablet 3 mg 1 tab(s), Oral, qHS ondansetron 2 mg/ 1 mL 2 mL INJ 4 mg 2 mL, IV Push, q4h polyethylene glycol 3350 - UD packet 17 gram(s) 15 mL, Oral, qDay Lab Results 07/18 03:46 WBC: 11.3 H Hgb: 15.2 Hct: 45.0 Platelet: 285 Neutrophil %: 88.9 H Glucose Level: 124 H Sodium Level: 140 Potassium Level: 4.7 BUN: 14.0 Creatinine Lvl (s): 0.85 07/17 04:55 WBC: 12.6 H Hgb: 14.6 Hct: 43.1 Platelet: 285 Neutrophil %: 85.0 H Protime: 13.1 PT International Ratio: 1.2 Glucose Level: 125 H Sodium Level: 142 Potassium Level: 4.1 BUN: 15.0 Creatinine Lvl (s): 0.77 Imaging Results and Diagnostics (07/18/2023 17:[address] Abdomen/Pelvis w/Contrast) IMPRESSION: 1. There is no evidence of abdominal or pelvic mass. There are mildly enlarged mesenteric nodes, nonspecific, which may be reactive. 2. At the posterior L2 vertebral body, there is a nonspecific 8 mm sclerotic lesion. There is a 7 mm sclerotic lesion of anterior L3 vertebral body. There is 7 mm and 6 mm sclerotic lesion of the right femoral head. [1] (07/18/2023 14:04 EDT MRI Brain w/ + w/o Contrast) IMPRESSION: Innumerable bilateral enhancing masses in the cerebral and cerebellar hemispheres, this represents metastatic disease till proven otherwise. [2] EKG No qualifying data available. Assessment/Plan Seizure, patient found to have brain mets, MRI of the brain showed innumerable bilateral enhancing masses in the cerebellar and cerebral hemisphere, neurosurgery following CT of the chest done at [facility] showed multiple bilateral pulmonary nodules, trace pleural effusion CT abdomen/pelvis showed sclerotic lesions Patient on Keppra and Decadron 4 mg every 6 hours Lung biopsy ordered, will follow for results Consulted radiation oncology to evaluate for treatment of brain lesions Patient mentioned being evaluated at tertiary hospital, can consider outpatient referral if patient would like to be seen at or [facility] Discussed with Dr. Pritchard. Please see addendum for further recommendations [1] CT Abdomen/Pelvis w/Contrast; ERIC CONNOR MD 07/18/2023 17:50 EDT [2] MRI Brain w/ + w/o Contrast; AI GERARD MD 07/18/2023 14:04 EDT Digitally Signed by LI CROOK on 07/19/2023 03:22 PM [facility] 07-19-2023 Note Subjective: Patient seen for seizure episode, concerns of metastatic malignancy. 37-year-old male with no known past medical history, does not take any medication, was transferred from another facility for witnessed seizure-like activity, and emergency room of the other facility CAT scan of the head was done and it showed multiple brain lesion highly concerning for malignancy, also a CAT scan of the chest was done and showed multiple nodules in the lung concerning for malignancy patient was started on Keppra and dexamethasone, and was transferred to our facility. Neurosurgery team as well as hematology oncology team was consulted. I did review the MRI of the brain results as well as the CAT scan of the abdomen with the patient as well as with his family's, I discussed in details the results and I answered all their questions. Patient and family understandably overwhelmed with the amount of information and the whole new findings on the images, they were tearful, and very emotional, they were mentioning if he would benefit from going to a tertiary center for further evaluation, I did mention to them that this will be a good idea however we most of the times run into wait list when we do the transfer, and I suggested at least lets get the lung biopsy here while the patient is in the hospital and they may be we can discharge the patient to follow-up with oncology and a tertiary center or transfer him from hospital to hospital, and I did encourage the patient as well as the family to discuss this with the hematology oncology team. patient was examined and evaluated today, patient denies chest pain, no shortness of breath, no cough, no fever or chills, no abdominal pain, no nausea or vomiting, no headache, tolerating po well, bowel movement is normal, denies weakness or fatigue. Vitals Signs(Last 24 hrs)__Last Charted Minimum M aximum Temp36.7(JUL 18:39)36.7(JUL 18:39)36.6(JUL 17 18:15) WQQ266(JUL 18:)96(JUL 18 02:55)108(JUL 17 18:15) DBP67(JUL 18:)L 59(JUL 18:55)76(JUL 18:39) Physical examination: HEENT, is atraumatic normocephalic, pupils are equal, no pallor Neck supple no JVD Lungs clear to auscultation bilaterally, no wheezes, no rhonchi, no accessory muscle use Heart S1-S2 regular Abdomen soft nontender nondistended bowel sounds are present all 4 quadrants Lower extremities show no edema, no cyanosis, pulses palpable +2 bilaterally Skin showed no rash Neurological examination patient is awake alert and oriented 3, cranial nerves are grossly intact, no focal neurological defect could be appreciated Assessment and plan: 1. Episode of seizure-like activity. 2. Innumerable bilateral enhancing masses on the cerebral and cerebellar hemispheres representing metastatic disease 3. Multiple lung nodules and CAT scan of the chest concerning for malignancy. 4. L2 and L3 sclerotic lesion 5. Metabolic acidosis. 6. Lactic acidosis, resolved. 7. Encephalopathy, likely postictal due to seizure, resolved. 8. History of skin cancer status post removal Plan: 1. Continue with dexamethasone and Keppra. 2. I did discuss the case with the neurosurgery team, will proceed with MRI of the brain with and without contrast, further recommendations to follow. 3. I did discuss the findings of the CAT scan of the chest with the interventional radiology team, they recommended that the best way to do the biopsy is CT-guided lung biopsy 4. Follow further recommendation from hematology oncology team 5. Continue to monitor patient clinically as well as his labs. Patient's to this plan of care all his questions were answered, his concerns were addressed, family was at the bedside all their questions were answered. Time spent with the patient was 40 minutes, more than 50% was explanation and talking about the patient's condition as well as the images as well as the differential diagnosis and the possibilities of treatment. Labs: Basic Metabolic Profile Glucose Level: 124 mg/dL High (07/19/23 03:46:00) Sodium Level: 140 mEq/L (07/19/23 03:46:00) Potassium Level: 4.7 mEq/L (07/19/23 03:46:00) Chloride: 109 mEq/L (07/19/23 03:46:00) CO2: 29 mEq/L (07/19/23 03:46:00) BUN/Creatinine Ratio: 16.5 ratio (07/19/23 03:46:00) Complete Blood Count WBC: 11.3 10^3/mcL High (07/19/23 03:46:00) RBC: 5.15 10^6/mcL (07/19/23 03:46:00) Hgb: 15.2 G/dL (07/19/23 03:46:00) Hct: 45 % (07/19/23 03:46:00) MCV: 87.3 fL (07/19/23 03:46:00) MCH: 29.4 pg (07/19/23 03:46:00) MCHC: 33.7 G/dL (07/19/23 03:46:00) RDW: 13.5 % (07/19/23 03:46:00) Platelet: 285 10^3/mcL (07/19/23 03:46:00) MPV: 7.4 fL (07/19/23 03:46:00) Medications (11) Active Scheduled: (3) dexamethasone 4 mg tablet 4 mg 1 tab(s), Oral, q6hr levETIRAcetam 500 mg tablet 500 mg 1 tab(s), Oral, BID pantoprazole 40 mg EC tablet 40 mg 1 tab(s), Oral, qDayAC Continuous: (0) PRN: (8) acetaminophen 325 mg Tablet 650 mg 2 tab(s), Oral, q4h acetaminophen 325 mg Tablet 650 mg 2 tab(s), Oral, q4h albuterol - ipratropium 2.5 mg-0.5 mg/3 mL Inhal Merelne UD 3 mL, Inhalation, q4hRT dextrose 50% Solution Disp syringe 50 mL 12.5 gram(s) 25 mL, IV Push, AsDirected guaifenesin 100 mg/5 mL Liquid SUGAR-FREE 120 mL 200 mg 10 mL, Oral, q4h melatonin 3 mg tablet 3 mg 1 tab(s), Oral, qHS ondansetron 2 mg/ 1 mL 2 mL INJ 4 mg 2 mL, IV Push, q4h polyethylene glycol 3350 - UD packet 17 gram(s) 15 mL, Oral, qDay Signature: Lilia Jarrell MD Digitally Signed by LILIA JARRELL MD on 07/19/2023 02:14 PM [facility] 07-19-2023 Neurological surgery Progress note Date of Service 07/19/2023 CT results reviewed. MRI results reviewed. Ottoniel unfortunately appears to have metastatic lung malignancy. Brain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
== END ==
LOC: OLS.HOSPIC 11:00
PROVIDERS: Visit Provider Nurse Practitioner Family
DX: R30.0 Dysuria (principal); R41.82 Altered mental status, unspecified
CPT/HCPCS: 81002; 87086; 87088